=== PATIENT | female | born 1970 | race African-American/Black ===

== ENCOUNTER 2016-08-12 09:17 | Emergency (ER) | payer OTHER ==
[~2016-08-12] VITALS: Ht 167.6 cm; Wt 87.5 kg
[2016-08-12] MEDS ORDERED: IV NORMAL SALINE 1,000ML 1,000 ML IV SCH (09:32)
[2016-08-12] MEDS ORDERED: ONDANSETRON PF 4 MG/2 ML VIAL. IV ONE (09:45)
--- NOTE | 2016-08-12 09:45 | ED.ADGEN ---
Past History Past Medical History: Bipolar, Diabetes Past Surgical History: Tubal ligation Alcohol Use: Rarely Drug Use: None Adult General Chief Complaint Chief Complaint right flank pain HPI HPI 45-year-old female presenting to the emergency department today with right- sided flank pain. She describes her pain as a sharp shooting pain that radiates into the groin. It is not associated with hematuria however is associated with dysuria. It is moderate to severe, intermittent and without alleviating factors. It is associated with nausea without vomiting. She denies fevers chills. She does not believe she is as she has had a tubal ligation many years ago. Review of systems was negative for bloody stools diarrhea constipation. Negative for vomiting chest pain or shortness of breath. All other review of systems is negative unless otherwise noted in history of present illness. Review of Systems Review of Systems SEE ABOVE. Current Medications Current Medications Current Medications Medications (Trade) Dose Ordered Sig/Stephanie Start Time Stop Time Status Last Admin Dose Admin Fentanyl Citrate 25 mcg 25 mcg PRN Q15MIN PRN 08/12/16 09:45 08/13/16 09:44 08/12/16 10:36 25 MCG Insulin Human Regular (Novolin R) 10 unit 1X ONCE 08/12/16 10:25 08/12/16 10:26 DC 08/12/16 10:04 10 UNIT Ondansetron HCl (Zofran) 4 mg 1X ONCE 08/12/16 09:45 08/12/16 09:46 DC 08/12/16 09:45 4 MG Sodium Chloride (Iv Sodium Chloride 0.9% 1,000ml) 1,000 ml @ 1,000 mls/hr Q1H 08/12/16 09:32 08/12/16 10:31 DC 08/12/16 09:32 1,000 MLS/HR Allergies Allergies Allergies Coded Allergies Type Severity Reaction Last Updated Verified metformin Allergy Unknown 08/12/16 Yes Physical Exam Physical Exam Constitutional: Well developed, well nourished, patient appears to be in a mild- to-moderate amount of pain. She is fidgety in the exam room., non-toxic appearance. HENT: Normocephalic, atraumatic, bilateral external ears normal, oropharynx moist, no oral exudates, nose normal. [] Eyes: PERRLA, EOMI, conjunctiva normal, no discharge. [] Neck: Normal range of motion, no tenderness, supple, no stridor. [] Cardiovascular:Heart rate regular rhythm, no murmur [] Lungs & Thorax: Bilateral breath sounds clear to auscultation [] Abdomen: Soft nontender abdomen without rebound tenderness or guarding present. Negative McBurneys point. Negative Babcock sign. No ecchymosis present. Skin: Warm, dry, no erythema, no rash. [] Back: No tenderness, right cva tenderness present Extremities: No tenderness, no cyanosis, no clubbing, ROM intact, no edema. [] Neurologic: Alert and oriented X 3, normal motor function, normal sensory function, no focal deficits noted. [] Psychologic: Affect normal, judgement normal, mood normal. [] Current Patient Data Vital Signs Vital Signs Date Time Temp Pulse Resp B/P Pulse Ox O2 Delivery O2 Flow Rate FiO2 08/12/16 11:01 91 18 144/85 98 08/12/16 09:28 96.3 Room Air Lab Results Laboratory Tests Test 08/12/16 09:40 08/12/16 09:51 08/12/16 09:52 08/12/16 10:56 White Blood Count 9.8x10^3/uL (4.0-11.0) Red Blood Count 5.68x10^6/uL (3.50-5.40) H Hemoglobin 14.7g/dL (12.0-15.5) Hematocrit 44.3% (36.0-47.0) Mean Corpuscular Volume 78fL (79-100) L Mean Corpuscular Hemoglobin 26pg (25-35) Mean Corpuscular Hemoglobin Concent 33g/dL (31-37) Red Cell Distribution Width 13.3% (11.5-14.5) Platelet Count 225x10^3/uL (140-400) Neutrophils (%) (Auto) 70% (31-73) Lymphocytes (%) (Auto) 19% (24-48) L Monocytes (%) (Auto) 10% (0-9) H Eosinophils (%) (Auto) 1% (0-3) Basophils (%) (Auto) 0% (0-3) Neutrophils # (Auto) 6.9x10^3uL (1.8-7.7) Lymphocytes # (Auto) 1.8x10^3/uL (1.0-4.8) Monocytes # (Auto) 1.0x10^3/uL (0.0-1.1) Eosinophils # (Auto) 0.1x10^3/uL (0.0-0.7) Basophils # (Auto) 0.0x10^3/uL (0.0-0.2) Urine Collection Type Unknown Urine Color Yellow Urine Clarity Clear Urine pH 5.5 Urine Specific [place] 1.010 Urine Protein Trace (NEG-TRACE) Urine Glucose (UA) >=1000mg/dL (NEG) Urine Ketones (Stick) Negmg/dL (NEG) Urine Blood Small (NEG) Urine Nitrite Neg (NEG) Urine Bilirubin Neg (NEG) Urine Urobilinogen Dipstick 0.2mg/dL (0.2 mg/dL) Urine Leukocyte Esterase Neg (NEG) Sodium Level 136mmol/L (136-145) Potassium Level 4.1mmol/L (3.5-5.1) Chloride Level 98mmol/L (98-107) Carbon Dioxide Level 31mmol/L (21-32) Anion Gap 7 (6-14) Blood Urea Nitrogen 17mg/dL (7-20) Creatinine 1.0mg/dL (0.6-1.0) Estimated GFR (Cockcroft-Gault) 72.2 Glucose Level 449mg/dL (70-99) H Calcium Level 9.7mg/dL (8.5-10.1) Total Bilirubin 0.5mg/dL (0.2-1.0) Direct Bilirubin 0.1mg/dL (0.0-0.2) Aspartate Amino Transferase (AST) 12U/L (15-37) L Alanine Aminotransferase (ALT) 27U/L (14-59) Alkaline Phosphatase 101U/L (46-116) Total Protein 8.7g/dL (6.4-8.2) H Albumin 3.7g/dL (3.4-5.0) Lipase 248U/L (73-393) Glucose (Fingerstick) 407mg/dL (70-99) H 180mg/dL (70-99) H POC Urine HCG, Qualitative hcg negative (Negative) EKG EKG [] Radiology/Procedures Radiology/Procedures [] Course & Med Decision Making Course & Med Decision Making Pertinent Labs and Imaging studies reviewed. (See chart for details) [] 45-year-old female with a history of diabetes presenting to the emergency department with right-sided flank pain and dysuria. Vital signs afebrile. Saturating well on room air. Pertinent physical exam findings showed mild right CVA tenderness with a nontender appendix nontender gallbladder. The patient was given IV fluids nausea and pain medications while in the emergency department. On reexamination her patent improved. She was sitting comfortably in the examination room on reexamination. Repeat abdominal exam shows a nontender appendix and nontender gallbladder. CT the abdomen pelvis was performed. No evidence for acute pathology. The patient was then discharged home in stable condition to follow up with their primary care physician over the next 2-3 days. They were to return if there symptoms worsened or if they're concerned for any reason. [id number] discharge instructions and return precautions were given. Patient's questions were answered to their satisfaction. Patient is comfortable plan. Final Impression Final Impression Right-sided flank pain [] Problems: Dragon Disclaimer Dragon Disclaimer This electronic medical record was generated, in whole or in part, using a voice recognition dictation system. KAY KNAPP MD Aug 12, 2016 09:45
[2016-08-12] MEDS: FENTANYL PF 100 MCG/2 ML VIAL. IV PRN ×2 (09:46→10:36)
[2016-08-12] MEDS ORDERED: MORP15TA PO (09:56)
[2016-08-12] MEDS ORDERED: ONDA4TAB10 SL (09:56)
[2016-08-12 10:07] LABS: BASO % 0 % (0-3); EOS # 0.1 x10^3/uL (0.0-0.7); EOS % 1 % (0-3); HEMATOCRIT 44.3 % (36.0-47.0); HEMOGLOBIN 14.7 g/dL (12.0-15.5); LYMPH # 1.8 x10^3/uL (1.0-4.8); LYMPH % 19 % (24-48); MEAN CORPUSCULAR HEMOGLOBIN 26 pg (25-35); MEAN CORPUSCULAR HGB CONC 33 g/dL (31-37); MEAN CORPUSCULAR VOLUME 78 fL (79-100); MONO % 10 % (0-9); NEUT # 6.9 x10^3uL (1.8-7.7); NEUT % 70 % (31-73); PLATELET COUNT 225 x10^3/uL (140-400); RED BLOOD COUNT 5.68 x10^6/uL (3.50-5.40); RED CELL DISTRIBUTION WIDTH 13.3 % (11.5-14.5); WHITE BLOOD COUNT 9.8 x10^3/uL (4.0-11.0)
[2016-08-12 10:10] LABS: CALCIUM 9.7 mg/dL (8.5-10.1); GFR 72.2; POTASSIUM 4.1 mmol/L (3.5-5.1)
[2016-08-12 10:16] LABS: ALBUMIN 3.7 g/dL (3.4-5.0); DIRECT BILIRUBIN 0.1 mg/dL (0.0-0.2); TOTAL BILIRUBIN 0.5 mg/dL (0.2-1.0); TOTAL PROTEIN 8.7 g/dL (6.4-8.2)
[2016-08-12] MEDS ORDERED: INSULIN REGULAR 100 UNIT/ML 10ML VIAL. IV ONE (10:25)
[2016-08-12 10:30] LABS: BILIRUBIN,URINE NEG (NEG); CLARITY,URINE CLEAR; COLOR,URINE YELLOW; GLUCOSE,URINE >=1000 mg/dL (NEG); NITRITE,URINE NEG (NEG); UROBILINOGEN,URINE 0.2 mg/dL (0.2 mg/dL)
--- NOTE | 2016-08-12 10:45 | RAD ---
CT abdomen and pelvis without contrast History: Nausea, right flank pain. Symptoms for one week. Comparison: None. Technique: Helical CT of the abdomen and pelvis was performed without intravenous or oral contrast. Axial, sagittal, and coronal reconstructions were obtained. One or more of the following individualized dose reduction techniques were utilized for the study: Automated exposure control Adjustment of mA and/or kV according to patient's size Use of iterative reconstruction technique. Findings: Evaluation of the solid organs is limited by lack of intravenous contrast. Evaluation of enteric structures may be limited by lack of oral contrast. Visualized liver, spleen, pancreas, gallbladder, and bilateral adrenal glands are unremarkable. There is no evidence of bowel obstruction. No free air or significant free fluid is identified in the abdomen or pelvis. Appendix appears within normal limits. Urinary bladder is unremarkable. Small amount of gas seen in the vaginal vault. Uterus and adnexa are otherwise unremarkable appearance. Several phleboliths are seen scattered in the abdomen and pelvis. Impression: No acute abnormality identified in the abdomen or pelvis. No evidence of urinary stone.
[2016-08-12 11:01] VITALS: BP 144/85
== END 2016-08-12 11:02 | disposition home or self-care (01) ==
LOC: ER 09:17
DX: R10.9 Unspecified abdominal pain (principal); R30.0 Dysuria; R11.0 Nausea; E11.9 Type 2 diabetes mellitus without complications; Z98.51 Tubal ligation status; Z88.8 Allergy status to other drugs, medicaments and biological substances
CPT/HCPCS: 36415; 74176; 80048; 80076; 81003; 82947; 83690; 84703; 85027; 96361; 96374; 96375; 99285; J1815; J2405; J3010; 81025; J7030

== ENCOUNTER 2016-09-01 11:29 | Emergency (ER) | payer OTHER ==
[~2016-09-01 11:29] MED LIST: MORP15TA PO; ONDA4TAB10 SL
[2016-09-01 12:21] LABS: BASO % 1 % (0-3); EOS % 1 % (0-3); HEMATOCRIT 42.2 % (36.0-47.0); LYMPH # 1.4 x10^3/uL (1.0-4.8); LYMPH % 19 % (24-48); MEAN CORPUSCULAR HEMOGLOBIN 26 pg (25-35); MEAN CORPUSCULAR HGB CONC 33 g/dL (31-37); MEAN CORPUSCULAR VOLUME 77 fL (79-100); MONO # 0.5 x10^3/uL (0.0-1.1); MONO % 7 % (0-9); NEUT # 5.5 x10^3uL (1.8-7.7); NEUT % 73 % (31-73); PLATELET COUNT 188 x10^3/uL (140-400); RED BLOOD COUNT 5.49 x10^6/uL (3.50-5.40); RED CELL DISTRIBUTION WIDTH 13.2 % (11.5-14.5); WHITE BLOOD COUNT 7.6 x10^3/uL (4.0-11.0)
--- NOTE | 2016-09-01 12:30 | EKG ---
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
[2016-09-01 12:32] LABS: ALBUMIN 3.4 g/dL (3.4-5.0); ALBUMIN/GLOBULIN RATIO 0.7 (1.0-1.7); CALCIUM 9.4 mg/dL (8.5-10.1); GFR 72.2; POTASSIUM 3.9 mmol/L (3.5-5.1); TOTAL BILIRUBIN 0.5 mg/dL (0.2-1.0); TOTAL PROTEIN 8.1 g/dL (6.4-8.2)
--- NOTE | 2016-09-01 12:39 | RAD ---
Examination: Acute abdomen series History: History of epigastric pain, nausea, vomiting Comparison: None available Findings: The cardiomediastinal silhouette grossly appears unremarkable. There is no acute infiltrate or visualized pneumothorax identified. No evidence of free air noted under the hemidiaphragms. Paucity of gas in the abdomen limits evaluation of small bowel. Feces and gas noted throughout the colon likely secondary to constipation. Impression: 1. No acute cardiopulmonary findings. 2. Feces and gas noted throughout the colon likely secondary to constipation.
[2016-09-01 13:01] LABS: BARBITURATES NEG (NEG); BENZODIAZEPINES NEG (NEG); BILIRUBIN,URINE NEG (NEG); CANNABINOIDS POS (NEG); CLARITY,URINE HAZY; COCAINE NEG (NEG); COLOR,URINE YELLOW; GLUCOSE,URINE >=1000 mg/dL (NEG); METHADONE NEG (NEG); OPIATES POS (NEG); PHENCYCLIDINE NEG (NEG)
[2016-09-01 13:02] LABS: BACTERIA,URINE MANY /HPF (0-FEW); NITRITE,URINE POS (NEG); RBC,URINE 0 /HPF (0-2); SQUAMOUS EPITHELIAL CELL,UR MOD /LPF; UROBILINOGEN,URINE 0.2 mg/dL (0.2 mg/dL)
--- NOTE | 2016-09-01 13:02 | PHYS DOC ---
General Chief Complaint: abdominal pain Stated Complaint: flank pain Time Seen by MD: 11:38 Source: patient, old records Exam Limitations: no limitations Problems: History of Present Illness Initial Comments Pt is 45/F h/o DM and bipolar here for flank and abdominal pain. Pt is out of insulin, states she has recurrance of b/l flank and abdominal discomfort. No n/v/d, last PO today last BM yesterday "nl." No fever/chills/ diaphoresis/cp/sob/hematuria/dysuria/odor. Here past week similar sx, full lab/ CT workup negative. Appetite intact, no trauma. Normally takes novolin SSI. Timing/Duration: 24 hours Severity: moderate Modifying Factors: improves with other (no exacerbating/alleviating factors) Associated Symptoms: other Allergies: Coded Allergies: metformin (Verified Allergy, Unknown, 08/12/16) Past Medical History Medical History: other (DM, bipolar) Surgical History: noncontributory (TL) Social History Smoker: cigarettes Alcohol: occasionally Drugs: none Review of Systems Constitutional: denies chills, denies diaphoresis, denies fever, denies malaise Respiratory: denies cough, denies shortness of breath, denies wheezing Cardiovascular: denies chest pain, denies palpitations, denies syncope Gastrointestinal: abdominal pain, denies constipation, denies diarrhea, denies nausea, denies vomiting Genitourinary: denies dysuria, denies frequency, denies hematuria Musculoskeletal: denies joint swelling, denies neck pain Psychiatric/Neurological: denies headache, denies numbness, denies paresthesia , denies weakness Hematologic/Lymphatic: denies blood clots, denies easy bleeding, denies easy bruising Physical Exam General Appearance: mild distress Eyes: bilateral eye normal inspection, bilateral eye PERRL, bilateral eye EOMI Ear, Nose, Throat: hearing grossly normal, normal ENT inspection, normal pharynx Neck: non-tender, supple Respiratory: normal breath sounds, no respiratory distress Cardiovascular: normal peripheral pulses, regular rate, rhythm Gastrointestinal: soft (ND, BS nl, generalized TTP neg mcburney/mobley, no masses), no organomegaly Rectal: deferred Back: no CVA tenderness, no vertebral tenderness Extremities: non-tender, normal inspection Neurologic/Psychiatric: summer law associate II-XII nml as tested, no motor/sensory deficits, alert, oriented x 3 Skin: normal color, warm/dry Orders, Labs, Meds PATIENT: WILFRED MASTERS ACCOUNT: [id number] : 1970 LOCATION: ER AGE: 45 SEX: F EXAM STATUS: REG ER ORD. PHYSICIAN: VIPUL SHEPHERD DO REASON: epigastric pain PROCEDURE: ACUTE ABDOMEN SERIES Examination: Acute abdomen series History: History of epigastric pain, nausea, vomiting Comparison: None available Findings: The cardiomediastinal silhouette grossly appears unremarkable. There is no acute infiltrate or visualized pneumothorax identified. No evidence of free air noted under the hemidiaphragms. Paucity of gas in the abdomen limits evaluation of small bowel. Feces and gas noted throughout the colon likely secondary to constipation. Impression: 1. No acute cardiopulmonary findings. 2. Feces and gas noted throughout the colon likely secondary to constipation. DICTATED AND SIGNED BY: TOMI YUN MD DATE: 09/01/16 7428 CC: PCP,NO; VIPUL SHEPHERD DO ~ Glucose 463 (10u reg insulin sc), UA grossly + infection, UDS + cannabinoids/ opiates glucose recheck 300's, pt requests insulin RF. Will RF enough x 1 week pt to f/ u PCP for refills. Encouraged to stop smoking. Departure Time of Disposition: 13:28 Disposition: 01 HOME, SELF-CARE Diagnosis: DM Uncontrolled, constipation, UTI Condition: STABLE Patient Instructions: Constipation, Adult, [id number], Diabetes and Standards of Medical Care, Urinary Tract Infection, [id number] Additional Instructions: Increase noncaffeinated fluid intake. Increase dietary fiber to 20g/day. Increase daily exercise, consider home fleet's enema as needed. Rx: Cipro, pyridium, glycerin supp, dulcolax, novolog insulin (for sliding scale) Take your home glucose before each meal and bedtime. Take BS log to follow up visit with your doctor. Follow up with your doctor Wednesday for recheck of symptoms and your glucose log. Return to ED with new or changing symptoms. VIPUL SHEPHERD DO September 01, 2016 13:02
[2016-09-01 13:03] LABS: AMPHETAMINE/METHAMPHETAMINE NEG (NEG)
[2016-09-01] MEDS ORDERED: GLYC1SUP RC (13:34)
[2016-09-01] MEDS ORDERED: CIPR500T94 PO (13:34)
[2016-09-01] MEDS ORDERED: PHEN100T82 PO (13:34)
[2016-09-01] MEDS ORDERED: BISA5TAB4 PO (13:34)
[2016-09-01] MEDS: INSULIN REGULAR 100 UNIT/ML 10ML VIAL. SQ ONE (13:50)
[2016-09-01 14:34] VITALS: BP 163/99
== END 2016-09-01 14:50 | disposition home or self-care (01) ==
LOC: ER 11:29
DX: N39.0 Urinary tract infection, site not specified (principal); K59.00 Constipation, unspecified; E11.8 Type 2 diabetes mellitus with unspecified complications; F31.9 Bipolar disorder, unspecified; F17.210 Nicotine dependence, cigarettes, uncomplicated; Z88.8 Allergy status to other drugs, medicaments and biological substances
CPT/HCPCS: 36415; 74022; 80053; 80305; 81001; 82550; 82947; 83690; 84484; 85027; 87086; 93005; 96372; 99285; J1815; G0481

== ENCOUNTER 2018-06-28 12:49 | Emergency (ER) | payer OTHER ==
[~2018-06-28] VITALS: Ht 167.6 cm; Wt 84.8 kg
[~2018-06-28 12:49] MED LIST changes: +BISA5TAB4 PO; +CIPR500T94 PO; +GLYC1SUP RC; +PHEN100T82 PO
[2018-06-28 13:04] VITALS: BP 147/99
[2018-06-28] MEDS ORDERED: CYCL-331 PO (13:34)
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
== END 2018-06-28 13:44 | disposition home or self-care (01) ==
LOC: ER 12:49
DX: M54.6 Pain in thoracic spine (principal); G89.11 Acute pain due to trauma; M54.2 Cervicalgia; F31.9 Bipolar disorder, unspecified; M79.7 Fibromyalgia; F20.9 Schizophrenia, unspecified; Z88.8 Allergy status to other drugs, medicaments and biological substances; Z90.710 Acquired absence of both cervix and uterus; Z98.51 Tubal ligation status; V49.59XA Passenger injured in collision with other motor vehicles in traffic accident, initial encounter; Y93.89 Activity, other specified; Y92.488 Other paved roadways as the place of occurrence of the external cause; Y99.8 Other external cause status
CPT/HCPCS: 99283

== ENCOUNTER 2018-08-18 08:36 | Emergency (ER) | payer SELFPAY ==
[~2018-08-18] VITALS: Ht 165.1 cm; Wt 81.0 kg
[~2018-08-18 08:36] MED LIST changes: +CYCL-331 PO
[2018-08-18 08:47] VITALS: BP 155/106
[2018-08-18] MEDS ORDERED: ORPH-16 PO (08:57)
[2018-08-18] MEDS ORDERED: PREG50CA PO (08:57)
[2018-08-18] MEDS ORDERED: METH4TAB2 PO (08:57)
--- NOTE | 2018-08-18 08:57 | PHYS DOC ---
Past History Past Medical History: Diabetes, Other Past Surgical History: Tubal ligation Alcohol Use: None Drug Use: None Adult General Chief Complaint Chief Complaint: PAIN CONTROL HPI HPI Patient is a 47-year-old female who presents with complaint of diffuse body and joint aches that she states are chronic in nature. Patient states that she has a history of fibromyalgia and states that she was taking Lyrica but states that she has been out of Lyrica for almost a month. She states her pain is progressively worsening and states that currently the worst of her pain is in her back but also diffusely in her joints. She also states that she has swelling in her joints. She denies any chest pain or shortness of breath. She also denies any fever. Patient states that she does not have a primary care provider and has been looking for one. Review of Systems Review of Systems Constitutional: Denies fever or chills [] Respiratory: Denies cough or shortness of breath [] Cardiovascular: No additional information not addressed in HPI [] GI: Denies abdominal pain, nausea, vomiting or diarrhea [] Musculoskeletal: Complains of back and diffuse joint pain [] Integument: Denies rash or skin lesions [] All other systems were reviewed and found to be within normal limits, except as documented in this note. Allergies Allergies Allergies Coded Allergies Type Severity Reaction Last Updated Verified metformin Allergy Unknown 08/12/16 Yes Physical Exam Physical Exam Constitutional: Well developed, well nourished, appears uncomfortable, non-toxic appearance. [] HENT: Normocephalic, atraumatic, bilateral external ears normal, oropharynx moist, no oral exudates, nose normal. [] Cardiovascular:Heart rate regular rhythm, no murmur [] Lungs & Thorax: Bilateral breath sounds clear to auscultation [] Skin: Warm, dry, no erythema, no rash. [] Back: Patient has diffuse tenderness throughout the back. There is some palpable spasm in the bilateral lower thoracic along with lumbar paraspinal musculature. [] Extremities: No cyanosis, no clubbing, ROM intact, no edema. [] Neurologic: Alert and oriented X 3, no focal deficits noted. [] Current Patient Data Vital Signs Vital Signs Date Time Temp Pulse Resp B/P (MAP) Pulse Ox O2 Delivery O2 Flow Rate FiO2 08/18/18 08:47 97.7 95 18 100 Room Air EKG EKG [] Radiology/Procedures Radiology/Procedures [] Course & Med Decision Making Course & Med Decision Making Pertinent Labs and Imaging studies reviewed. (See chart for details) [] Mitch Disclaimer Mitch Disclaimer This electronic medical record was generated, in whole or in part, using a voice recognition dictation system. Departure Departure: Impression: Primary Impression: Chronic pain Disposition: HOME, SELF-CARE Condition: STABLE Referrals: PCP,NO (PCP) Patient Instructions: Chronic Pain Scripts Methylprednisolone (MEDROL) 4 Mg Tab.ds.pk 1 PKG PO UD for inflammation, #1 PKG Prov: CAROLINA BAY Jr. DO 08/18/18 Orphenadrine Citrate (ORPHENADRINE CITRATE) 100 Mg Tablet.er 1 TAB PO BID PRN for MUSCLE SPASMS, #14 TAB Prov: CAROLINA BAY Jr. DO 08/18/18 Pregabalin (LYRICA) 50 Mg Capsule 1 CAP PO TID for chronic pain, #45 CAP Prov: CAROLINA BAY Jr. DO 08/18/18 Problem Qualifiers Primary Impression: Chronic pain Chronic pain type: other chronic pain Qualified Codes: G89.29 - Other chronic pain CAROLINA BAY Jr. DO August 18, 2018 08:57
[2018-08-18] MEDS ORDERED: DEXAMETHASONE SOD PHOS 10 MG/ML VIAL IM ONE (09:15)
[2018-08-18] MEDS ORDERED: HYDROcodone/APAP 7.5/325MG 1 TAB TABLET PO ONE (09:15)
[2018-08-18] MEDS ORDERED: ORPHENADRINE CITRATE 60 MG/2 ML VIAL. IM ONE (09:15)
== END 2018-08-18 09:18 | disposition home or self-care (01) ==
LOC: ER 08:36
DX: G89.29 Other chronic pain (principal); M54.5 Low back pain; M54.6 Pain in thoracic spine; E11.9 Type 2 diabetes mellitus without complications; M79.7 Fibromyalgia; Z98.51 Tubal ligation status; Z88.8 Allergy status to other drugs, medicaments and biological substances
CPT/HCPCS: 96372; 99284; J1100; J2360

== ENCOUNTER 2018-09-04 17:39 | Emergency (ER) | payer SELFPAY ==
[~2018-09-04] VITALS: Ht 165.1 cm; Wt 83.3 kg
[2018-09-04 17:39] VITALS: BP 151/78
[~2018-09-04 17:39] MED LIST changes: +METH4TAB2 PO; +ORPH-16 PO; +PREG50CA PO
[2018-09-04] MEDS ORDERED: ACETAMINOPHEN/CODEINE 300/30MG TABLET PO ONE (18:15)
--- NOTE | 2018-09-04 18:21 | PHYS DOC ---
Past History Past Medical History: Diabetes, Fibromyalgia, Other Past Surgical History: Tubal ligation Alcohol Use: Rarely Drug Use: None Adult General Chief Complaint Chief Complaint: MECHANICAL FALL HPI HPI Patient is a 47-year-old female who presents with complaint of pain in her tailbone after she slipped on a broomstick and fell directly onto her buttocks. She rates pain at greater than a 10 out of 10. She states the pain is worsened when she sits down and when she goes over bumps. She denies any loss of bowel or bladder control. She also denies any saddle anesthesia. Patient denies any pain in her back or neck. She describes pain as a deep ache. She states that injury occurred approximately an hour ago.[] Review of Systems Review of Systems Constitutional: Denies fever or chills [] Respiratory: Denies cough or shortness of breath [] Cardiovascular: No additional information not addressed in HPI [] GI: Denies abdominal pain, nausea, vomiting or diarrhea [] : Denies dysuria or hematuria [] Musculoskeletal: Positive tailbone/buttock pain [] Current Medications Current Medications Current Medications Medications (Trade) Dose Ordered Sig/Stephanie Start Time Stop Time Status Last Admin Dose Admin Acetaminophen/ Codeine Phosphate (Tylenol #3) 1 tab 1X ONCE 09/04/18 18:15 09/04/18 18:16 DC 09/04/18 18:16 1 TAB Allergies Allergies Allergies Coded Allergies Type Severity Reaction Last Updated Verified metformin Allergy Unknown 08/12/16 Yes Physical Exam Physical Exam Constitutional: Well developed, well nourished, no acute distress, non-toxic appearance. [] Cardiovascular:Heart rate regular rhythm, no murmur [] Lungs & Thorax: Bilateral breath sounds clear to auscultation [] Back: No spinous point tenderness. There is tenderness to palpation overlying the sacrum and coccyx region. [] Extremities: No tenderness, no cyanosis, no clubbing, ROM intact. [] Current Patient Data Vital Signs Vital Signs Date Time Temp Pulse Resp B/P (MAP) Pulse Ox O2 Delivery O2 Flow Rate FiO2 09/04/18 17:39 98.2 109 20 100 Room Air EKG EKG [] Radiology/Procedures Radiology/Procedures [] Course & Med Decision Making Course & Med Decision Making Pertinent Labs and Imaging studies reviewed. (See chart for details) [] Dragon Disclaimer Dragon Disclaimer This electronic medical record was generated, in whole or in part, using a voice recognition dictation system. Departure Departure: Impression: Primary Impression: Sacral contusion Disposition: 01 HOME, SELF-CARE Condition: STABLE Referrals: PCP,NO (PCP) Patient Instructions: Tailbone Injury Scripts Hydrocodone Bit/Acetaminophen (NORCO 5-325 TABLET) 1 Each Tablet 1 TAB PO PRN Q6HRS PRN for PAIN, #12 TAB 0 Refills Prov: CAROLINA BAY Jr., DO 09/04/18 Problem Qualifiers Primary Impression: Sacral contusion Encounter type: initial encounter Qualified Codes: S30.0XXA - Contusion of lower back and pelvis, initial encounter CAROLINA BAY Jr., DO September 04, 2018 18:21
[2018-09-04] MEDS ORDERED: HYDR-3165 PO (18:57)
--- NOTE | 2018-09-05 01:52 | RAD ---
Sacrum and coccyx 3 views. HISTORY: Fall, severe pain 3 views were taken of the sacrum and coccyx. Coccyx is in normal alignment. Sacrum appears intact without definite fracture. Lower lumbar spine is in normal alignment. IMPRESSION: 1. No fracture noted in the sacrum or coccyx. Electronically signed by: Rancho Lindsey MD (09/05/2018 1:49 AM) [id number]
== END 2018-09-04 19:07 | disposition home or self-care (01) ==
LOC: ER 17:39
DX: S30.0XXA Contusion of lower back and pelvis, initial encounter (principal); E11.9 Type 2 diabetes mellitus without complications; M79.7 Fibromyalgia; Z88.8 Allergy status to other drugs, medicaments and biological substances; W01.0XXA Fall on same level from slipping, tripping and stumbling without subsequent striking against object, initial encounter; Y93.89 Activity, other specified; Y92.89 Other specified places as the place of occurrence of the external cause; Y99.8 Other external cause status
CPT/HCPCS: 72220; 99284

== ENCOUNTER 2018-09-19 12:07 | Emergency (ER) | payer SELFPAY ==
[~2018-09-19] VITALS: Ht 167.6 cm; Wt 83.5 kg
[~2018-09-19 12:07] MED LIST changes: +HYDR-3165 PO
[2018-09-19 12:20] VITALS: BP 134/98
--- NOTE | 2018-09-19 12:43 | PHYS DOC ---
Past History Past Medical History: Diabetes, Fibromyalgia, GERD Past Surgical History: Tubal ligation Smoking: Non-smoker Alcohol Use: Occasionally Drug Use: None Adult General Chief Complaint Chief Complaint: CHEST PAIN HPI HPI Patient is a 47-year-old female presents with right-sided chest discomfort that started 2 days ago. It has waxed and waned. No home medicines have been taken. Patient denies any PE risk factors such as trauma or recent surgeries, stasis or travel, or known hypercoagulable state. She notes that there has been a cough that has increased. No fever. No trauma. No radiation of the discomfort. No worsening with exertion. Patient's mother had a heart attack at age 35 just after delivering the patient.[] Review of Systems Review of Systems Constitutional: Denies fever or chills [] Eyes: Denies change in visual acuity, redness, or eye pain [] HENT: Denies nasal congestion or sore throat [] Respiratory: Denies cough or shortness of breath [] Cardiovascular: No additional information not addressed in HPI [] GI: Denies abdominal pain, nausea, vomiting, bloody stools or diarrhea [] : Denies dysuria or hematuria [] Musculoskeletal: Denies back pain or joint pain [] Integument: Denies rash or skin lesions [] Neurologic: Denies headache, focal weakness or sensory changes [] Endocrine: Denies polyuria or polydipsia [] All other systems were reviewed and found to be within normal limits, except as documented in this note. Allergies Allergies Allergies Coded Allergies Type Severity Reaction Last Updated Verified metformin Allergy Unknown 08/12/16 Yes Physical Exam Physical Exam Constitutional: Well developed, well nourished, no acute distress, non-toxic appearance. [] HENT: Normocephalic, atraumatic, bilateral external ears normal, oropharynx moist, no oral exudates, nose normal. [] Eyes: PERRLA, EOMI, conjunctiva normal, no discharge. [] Neck: Normal range of motion, no tenderness, supple, no stridor. [] Cardiovascular:Heart rate regular rhythm, no murmur [] Lungs & Thorax: Bilateral breath sounds clear to auscultation, there is right- sided chest discomfort to palpation, mid clavicular line and medially at approximately the fourth to fifth costal cartilage. This does reproduce the pain. There is no crepitus. [] Abdomen: Bowel sounds normal, soft, no tenderness, no masses, no pulsatile masses. [] Skin: Warm, dry, no erythema, no rash. [] Back: No tenderness, no CVA tenderness. [] Extremities: No tenderness, no cyanosis, no clubbing, ROM intact, no edema. [] Neurologic: Alert and oriented X 3, normal motor function, normal sensory function, no focal deficits noted. [] Psychologic: Affect normal, judgement normal, mood normal. [] Current Patient Data Vital Signs Vital Signs Date Time Temp Pulse Resp B/P (MAP) Pulse Ox O2 Delivery O2 Flow Rate FiO2 09/19/18 12:20 97.7 86 21 96 Room Air EKG EKG EKG shows a sinus rhythm at 93 bpm, no ST elevation. Normal axis. QTC of 438 ms. No old EKG available for comparison. Interpreted by me at 1227.[] Radiology/Procedures Radiology/Procedures Chest x-ray shows no infiltrate, no effusion, no pneumothorax[] Course & Med Decision Making Course & Med Decision Making Pertinent Labs and Imaging studies reviewed. (See chart for details) ED course: Patient arrived, was placed in bed, and tolerated exam well. She received IV NSAIDs which improved her pain. After the return of lab and imaging findings, these were discussed with the patient and her partner who voiced understanding. All questions were answered. She was discharged in improved condition. Medical decision making: There does not appear to be pneumonia, pneumothorax, pulmonary embolism, acute coronary syndrome, esophageal rupture, nor other significant life-threatening condition.[] Dragon Disclaimer Dragon Disclaimer This electronic medical record was generated, in whole or in part, using a voice recognition dictation system. Departure Departure: Impression: Primary Impression: Chest pain Disposition: HOME, SELF-CARE Condition: IMPROVED Referrals: PCP,NO (PCP) Patient Instructions: Chest Pain (Nonspecific) Additional Instructions: Follow-up with your regular doctor in 2 days. Your medication as prescribed. Do not use any drugs or medicines that are not prescribed for you, they may kill you. Return to the ER if worsening chest discomfort, difficulty breathing, or any other concerns. Scripts Meloxicam (MELOXICAM) 7.5 Mg Tablet 7.5 MG PO DAILY for PAIN, #20 TAB Prov: MEGAN COLEMAN DO 09/19/18 Problem Qualifiers Primary Impression: Chest pain Chest pain type: unspecified Qualified Codes: R07.9 - Chest pain, unspecified MEGAN COLEMAN DO Sep 19, 2018 12:43
[2018-09-19 12:49] LABS: BASO % 1 % (0-3); EOS % 0 % (0-3); HEMOGLOBIN 13.7 g/dL (12.0-15.5); LYMPH # 1.5 x10^3/uL (1.0-4.8); LYMPH % 20 % (24-48); MEAN CORPUSCULAR HEMOGLOBIN 25 pg (25-35); MEAN CORPUSCULAR HGB CONC 33 g/dL (31-37); MEAN CORPUSCULAR VOLUME 77 fL (79-100); MONO # 0.6 x10^3/uL (0.0-1.1); MONO % 8 % (0-9); NEUT # 5.4 x10^3uL (1.8-7.7); NEUT % 71 % (31-73); PLATELET COUNT 213 x10^3/uL (140-400); RED BLOOD COUNT 5.42 x10^6/uL (3.50-5.40); RED CELL DISTRIBUTION WIDTH 13.4 % (11.5-14.5); WHITE BLOOD COUNT 7.6 x10^3/uL (4.0-11.0)
[2018-09-19] MEDS ORDERED: KETOROLAC 15 MG/ML VIAL. IV ONE (13:00)
[2018-09-19 13:10] LABS: ALBUMIN 3.2 g/dL (3.4-5.0); ALBUMIN/GLOBULIN RATIO 0.8 (1.0-1.7); CALCIUM 9.4 mg/dL (8.5-10.1); CREATININE 1.2 mg/dL (0.6-1.0); MAGNESIUM 1.9 mg/dL (1.8-2.4); POTASSIUM 4.1 mmol/L (3.5-5.1); TOTAL BILIRUBIN 0.3 mg/dL (0.2-1.0); TOTAL PROTEIN 7.2 g/dL (6.4-8.2)
[2018-09-19 13:20] LABS: BARBITURATES NEG (NEG); BENZODIAZEPINES NEG (NEG); CANNABINOIDS POS (NEG); COCAINE NEG (NEG); METHADONE NEG (NEG); OPIATES NEG (NEG); PHENCYCLIDINE NEG (NEG)
[2018-09-19 13:39] LABS: BACTERIA,URINE MANY /HPF (0-FEW); BILIRUBIN,URINE NEG (NEG); CLARITY,URINE CLOUDY; COLOR,URINE YELLOW; GLUCOSE,URINE >=1000 mg/dL (NEG); HYALINE CASTS, URINE FEW /HPF; NITRITE,URINE NEG (NEG); SQUAMOUS EPITHELIAL CELL,UR OCC /LPF; UROBILINOGEN,URINE 0.2 mg/dL (0.2 mg/dL)
[2018-09-19 13:43] LABS: AMPHETAMINE/METHAMPHETAMINE NEG (NEG)
[2018-09-19] MEDS ORDERED: MELO7.5T29 PO (13:54)
--- NOTE | 2018-09-19 14:49 | RAD ---
EXAM: CHEST 1 VIEW. HISTORY: Chest pain. COMPARISON: None. FINDINGS: A frontal view of the chest is obtained. There are no confluent infiltrates. There is no pneumothorax or pleural effusion. The heart is not enlarged. IMPRESSION: 1. No confluent infiltrates. Electronically signed by: Lori Burnham MD (09/19/2018 2:46 PM) [facility]
--- NOTE | 2018-09-19 16:09 | EKG ---
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
== END 2018-09-19 14:00 | disposition home or self-care (01) ==
LOC: ER 12:07
DX: R07.89 Other chest pain (principal); E11.9 Type 2 diabetes mellitus without complications; M79.7 Fibromyalgia; K21.9 Gastro-esophageal reflux disease without esophagitis; Z88.8 Allergy status to other drugs, medicaments and biological substances
CPT/HCPCS: 36415; 71045; 80053; 80307; 81001; 83690; 83735; 83880; 84484; 84702; 85025; 85379; 85610; 87086; 93005; 96374; 99285; J1885; 87186

== ENCOUNTER 2018-10-17 11:41 | Emergency (ER) | payer SELFPAY ==
[~2018-10-17] VITALS: Ht 167.6 cm; Wt 80.0 kg
[~2018-10-17 11:41] MED LIST changes: +MELO7.5T29 PO
[2018-10-17 11:53] VITALS: BP 130/83
[2018-10-17] MEDS ORDERED: CLIN300C8 PO (12:08)
--- NOTE | 2018-10-17 12:59 | PHYS DOC ---
Past History Past Medical History: Diabetes, Fibromyalgia, GERD Past Surgical History: No Surgical History Smoking: Non-smoker Alcohol Use: None Drug Use: None Adult General Chief Complaint Chief Complaint: INSECT BITE HPI HPI Patient is a 47 yo f thinks she got a bug bite right leg the other day about a weke ago slowly increasing redness and pain dull modeate swelling incraesing. redness extending to midshin area. no fever that she knows of hx of diabetes on novolog Review of Systems Review of Systems Constitutional: Denies fever or chills [] Respiratory: Denies cough or shortness of breath [] Cardiovascular: No additional information not addressed in HPI [] Neurologic: Denies headache, focal weakness Endocrine: Denies polyuria or polydipsia [] All other systems were reviewed and found to be within normal limits, except as documented in this note. Allergies Allergies Allergies Coded Allergies Type Severity Reaction Last Updated Verified metformin Allergy Unknown 08/12/16 Yes Physical Exam Physical Exam Constitutional: Well developed, well nourished, no acute distress, non-toxic appearance. [] HENT: Normocephalic, atraumatic, bilateral external ears normal, oropharynx moist, no oral exudates, nose normal. [] Eyes: PERRLA, EOMI, conjunctiva normal, no discharge. [] Neck: Normal range of motion, no tenderness, supple, no stridor. [] Cardiovascular:Heart rate regular rhythm, no murmur [] Lungs & Thorax: Bilateral breath sounds clear to auscultation [] Abdomen: Bowel sounds normal, soft, no tenderness, no masses, no pulsatile masses. [] Skin: erythema noted right anterolateral mccloud approx 3 by 3 cm area of induration , no fluctuance. apparent bug bite noted. there is tenderness noted. distal sensation and pulse intact. mild edema in the extremity with faint color change form the mid mccloud down. Back: No tenderness, no CVA tenderness. [] Extremities: No tenderness, no cyanosis, no clubbing, ROM intact, no edema. [] Neurologic: Alert and oriented X 3, normal motor function, normal sensory function, no focal deficits noted. [] Psychologic: Affect normal, judgement normal, mood normal. [] Current Patient Data Vital Signs Vital Signs Date Time Temp Pulse Resp B/P (MAP) Pulse Ox O2 Delivery O2 Flow Rate FiO2 10/17/18 11:53 98.9 100 19 97 Room Air EKG EKG [] Radiology/Procedures Radiology/Procedures [] Course & Med Decision Making Course & Med Decision Making Pertinent Labs and Imaging studies reviewed. (See chart for details) 47 yo f p/w leg infeciton, could have been from a bug bite but there appears to be a mild diffuse cellulits. at this time, no obvious fluctuance i talked to patient, try antibiotics first, then come back in 3-4 days if it is any worse to consider i and d at that time she is agreeable. return prec discussed Dragon Disclaimer Dragon Disclaimer This electronic medical record was generated, in whole or in part, using a voice recognition dictation system. Departure Departure: Impression: Primary Impression: Cellulitis Disposition: 01 HOME, SELF-CARE Condition: STABLE Referrals: PCP,NO (PCP) Patient Instructions: Cellulitis, [id number] Scripts Clindamycin Hcl (CLINDAMYCIN HCL) 300 Mg Capsule 1 CAP PO TID for cellulitis., #30 CAP Prov: BEVERLEY MORA MD 10/17/18 BEVERLEY MORA MD Oct 17, 2018 12:59
[2018-10-18] MEDS ORDERED: MELO7.5T29 PO (02:50)
== END 2018-10-17 12:12 | disposition home or self-care (01) ==
LOC: ER 11:41
DX: S80.861A Insect bite (nonvenomous), right lower leg, initial encounter (principal); L03.115 Cellulitis of right lower limb; E11.9 Type 2 diabetes mellitus without complications; M79.7 Fibromyalgia; K21.9 Gastro-esophageal reflux disease without esophagitis; Z88.8 Allergy status to other drugs, medicaments and biological substances; W57.XXXA Bitten or stung by nonvenomous insect and other nonvenomous arthropods, initial encounter; Y93.89 Activity, other specified; Y92.89 Other specified places as the place of occurrence of the external cause; Y99.8 Other external cause status
CPT/HCPCS: 99283

== ENCOUNTER 2018-10-18 02:17 | Emergency (ER) | payer SELFPAY ==
[~2018-10-18] VITALS: Ht 167.6 cm; Wt 79.8 kg
[~2018-10-18 02:17] MED LIST changes: +CLIN300C8 PO
[2018-10-18 02:25] VITALS: BP 155/93
[2018-10-18] MEDS ORDERED: MELO7.5T29 PO (02:50)
--- NOTE | 2018-10-18 02:50 | PHYS DOC ---
Past History Past Medical History: Diabetes, Fibromyalgia, GERD Past Surgical History: No Surgical History Smoking: Non-smoker Alcohol Use: None Drug Use: None Adult General Chief Complaint Chief Complaint: LOWER EXTREMITY SWELLING HPI HPI Patient is a 47-year-old female presents with right leg pain and swelling. She was seen earlier/approximately 14 hours ago for this. She was prescribed antibiotics for cellulitis which she has not yet obtained from the pharmacy. This leg pain and swelling and redness started approximately 4 days ago after an insect bite. It has been getting worse over time. She denies any systemic fever. Notes that the area feels hot. Denies any purulent drainage. Nothing makes the symptoms better or worse.[] Review of Systems Review of Systems Constitutional: Denies fever or chills [] Eyes: Denies change in visual acuity, redness, or eye pain [] HENT: Denies nasal congestion or sore throat [] Respiratory: Denies cough or shortness of breath [] Cardiovascular: No chest pain or palpitations[] GI: Denies abdominal pain, nausea, vomiting, bloody stools or diarrhea [] : Denies dysuria or hematuria [] Musculoskeletal: Denies back pain or joint pain [] Integument: See history of present illness[] Neurologic: Denies headache, focal weakness or sensory changes [] Endocrine: Denies polyuria or polydipsia [] All other systems were reviewed and found to be within normal limits, except as documented in this note. Allergies Allergies Allergies Coded Allergies Type Severity Reaction Last Updated Verified metformin Allergy Unknown 08/12/16 Yes Physical Exam Physical Exam Constitutional: Well developed, well nourished, no acute distress, non-toxic appearance. [] HENT: Normocephalic, atraumatic, bilateral external ears normal, oropharynx moist, no oral exudates, nose normal. [] Eyes: PERRLA, EOMI, conjunctiva normal, no discharge. [] Neck: Normal range of motion, no tenderness, supple, no stridor. [] Cardiovascular:Heart rate regular rhythm, no murmur [] Lungs & Thorax: Bilateral breath sounds clear to auscultation [] Abdomen: Not examined[] Skin: Warm, dry, erythema present right calf region. There is a 1 cm diameter [place] on the lateral portion of the calf, at the anterior inferior aspect of her tattoo. This blister contains clear fluid which was aspirated and sent for laboratory analysis. There is no skin sloughing. No petechiae. [] Back: No tenderness, no CVA tenderness. [] Extremities: No tenderness, no cyanosis, no clubbing, ROM intact, no edema. [] Neurologic: Alert and oriented X 3, normal motor function, normal sensory function, no focal deficits noted. [] Psychologic: Affect normal, judgement normal, mood normal. [] Current Patient Data Vital Signs Vital Signs Date Time Temp Pulse Resp B/P (MAP) Pulse Ox O2 Delivery O2 Flow Rate FiO2 10/18/18 02:25 98.4 101 18 97 Room Air EKG EKG [] Radiology/Procedures Radiology/Procedures [] Course & Med Decision Making Course & Med Decision Making Pertinent Labs and Imaging studies reviewed. (See chart for details) Medical decision making: Patient appears to have cellulitis that has not yet started treatment. There was no purulent material in this blister. 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 There is no evidence of systemic toxicity or sepsis. No evidence of a DVT. No evidence of staph scalded skin syndrome, toxic epidermal necrolysis, nor Thomas-Usman syndrome. Discussed plan with the patient who voiced understanding. All questions were answered. She was discharged in improved condition.[] Dragon Disclaimer Dragon Disclaimer This electronic medical record was generated, in whole or in part, using a voice recognition dictation system. Departure Departure: Impression: Primary Impression: Cellulitis Disposition: 01 HOME, SELF-CARE Condition: IMPROVED Referrals: PCP,ANTONIO (PCP) Patient Instructions: Cellulitis Additional Instructions: Take medication as previously prescribed. Follow-up with your regular doctor in 2 days. If you do not have regular doctor list of local clinics will be provided for you. Apply warm compresses at least 4 times a day for 15 minutes at a time. Return to the ER if worsening pain, swelling, or any other concerns. Scripts Meloxicam (MELOXICAM) 7.5 Mg Tablet 7.5 MG PO DAILY for PAIN, #20 TAB Prov: ELROYJORDIMEGAN IRVING 10/18/18 Incision and Drainage Indication: Blister of right calf] Procedure: The patient was positioned appropriately and the skin over the incision site was prepped in a sterile manner. Local anesthesia was not provided. An needle aspiration was made of the material in the blister on the right calf and 1-2 mL of clear material was expressed. This was then covered with a sterile bandage. The patient tolerated the procedure well:]. Complications: None Problem Qualifiers Primary Impression: Cellulitis Site of cellulitis: extremity Site of cellulitis of extremity: lower extremity Laterality: right Qualified Codes: L03.115 - Cellulitis of right lower limb MGEAN COLEMAN DO Oct 18, 2018 02:50
[2018-10-18] MEDS ORDERED: CLINDAMYCIN HCL 150 MG CAPSULE PO ONE (03:00)
== END 2018-10-18 03:00 | disposition home or self-care (01) ==
LOC: ER 02:17
DX: L03.115 Cellulitis of right lower limb (principal); E11.9 Type 2 diabetes mellitus without complications; M79.7 Fibromyalgia; K21.9 Gastro-esophageal reflux disease without esophagitis; Z88.8 Allergy status to other drugs, medicaments and biological substances
CPT/HCPCS: 10120; 10160; 87070; 99284

== ENCOUNTER 2019-07-06 23:26 | Emergency (ER) | payer SELFPAY ==
[~2019-07-06] VITALS: Ht 167.6 cm; Wt 81.8 kg
--- NOTE | 2019-07-06 23:39 | PHYS DOC ---
Past History Past Medical History: Diabetes, Fibromyalgia, GERD, UTI Past Medical History Hx. of herpetic lesions- vaginal Past Surgical History: No Surgical History Smoking: Non-smoker Alcohol Use: None Drug Use: None Adult General Chief Complaint Chief Complaint: ".. I got problems.. down... in my vaginal area...."...." I think I am having a herpies out break... " .." I ve had it before... Usually get's... small outbreak about twice a year....this one is much more painful..." HPI HPI Patient is a 48 year old female who presents with above hx and complaints labial blisters- similar to prior outbreaks of herpes. Patient advised she has small outbreaks approximately twice a year. Patient denies any history of other STDs other than bacterial vaginosis. Patient has had only one sexual partner for the last 20 some years. Patient first diagnosed with herpes in 1991 after significant out break on her vaginal area. . Patient does have a history of diabetes and fibromyalgia. Patient states last HIV check was negative approximately 2 years ago. Patient normally follows at [facility]. Her last glucose checks were all less than 200. Patient has complaints of subjective fever. Does complain of dysuria. Her has no symptoms. She denies any history of trauma to the vaginal area no instrumentation. Review of Systems Review of Systems Constitutional: Subjective complaints of fever Eyes: Denies change in visual acuity, redness, or eye pain [] HENT: Denies nasal congestion or sore throat [] Respiratory: Denies cough or shortness of breath [] Cardiovascular: No additional information not addressed in HPI [] GI: Denies abdominal pain, nausea, vomiting, bloody stools or diarrhea. Complaints of blisters on her labia-primary on right side : Complaints of dysuria Musculoskeletal: Denies back pain or joint pain [] Integument: Denies rash or skin lesions [] Neurologic: Denies headache, focal weakness or sensory changes [] Endocrine: Denies polyuria or polydipsia [] All other systems were reviewed and found to be within normal limits, except as documented in this note. Family History Family History Diabetes & hypertension Current Medications Current Medications See nursing for home meds Allergies Allergies Allergies Coded Allergies Type Severity Reaction Last Updated Verified I S O L A T I O N *CONTACT* Allergy Unknown 10/24/18 Yes metformin Allergy Unknown 08/12/16 Yes Physical Exam Physical Exam Constitutional: in acute distress, non-toxic appearance. [] HENT: Normocephalic, atraumatic, bilateral external ears normal, oropharynx moist, no oral exudates, nose normal. Poor dentition Eyes: PERRLA, EOMI, conjunctiva normal, no discharge. [] Neck: Normal range of motion, no tenderness, supple, no stridor. [] Cardiovascular:Heart rate regular rhythm, no murmur [] Lungs & Thorax: Bilateral breath sounds equal apex with scattered wheezes on auscultation [] Abdomen: Bowel sounds normal, soft, no tenderness, no masses, no pulsatile masses. [] Vaginal labia very injected with obvious blisters on right labia with typical appearance of herpes. Some minimal vaginal discharge. Skin: Warm, dry, no erythema, no rash. [] Back: No tenderness, no CVA tenderness. [] Extremities: No tenderness, no cyanosis, no clubbing, ROM intact, no edema. [] Neurologic: Alert and oriented X 3, normal motor function, normal sensory function, no focal deficits noted. [] Psychologic: Affect anxious, judgement normal, mood normal. [] EKG EKG [] Radiology/Procedures Radiology/Procedures [] Course & Med Decision Making Course & Med Decision Making Pertinent Labs and Imaging studies reviewed. (See chart for details) Patient to take this likely or 200 mg 5 times a day. For the next 10 days. Patient take Keflex 500 mg 3 times a day for urinary tract infection. Patient follow-up pending cultures. Patient follow-up pending urine cultures. Patient take Tylenol and ibuprofen for pain. For marked pain take Vicoprofen or Percocet. Practice safe sex. Consider use of acyclovir suppression. Follow-up blood sugars regularly. After completing Keflex course take Diflucan for 100 mg daily for 3 days. Return if any concerns. Follow-up primary care. Encouraged patient to stop smoking Impression: 1. UTI 2. Genital Herpes [] Dragon Disclaimer Dragon Disclaimer This electronic medical record was generated, in whole or in part, using a voice recognition dictation system. Departure Departure: Disposition: 01 HOME/RESIDENCE PRIOR TO ADM Condition: STABLE Referrals: PCP,NO (PCP) Scripts Hydrocodone/Ibuprofen (HYDROCODONE-IBUPROFEN 7.5-200 ) 1 Each Tablet 1 TAB PO PRN Q6HRS PRN for PAIN, #30 TAB 0 Refills Prov: RASHI CHATMAN MD 07/07/19 Fluconazole (DIFLUCAN) 100 Mg Tablet 100 MG PO DAILY for post Keflex use for 3 Days, #3 TAB Prov: RASHI CHATMAN MD 07/07/19 Cephalexin (KEFLEX) 500 Mg Capsule 500 MG PO TID for uti for 10 Days, BOTTLE Prov: RASHI CHATMAN MD 07/07/19 Acyclovir (ACYCLOVIR) 200 Mg Capsule 200 MG PO 5 x day for herpies for 10 Days, CAP Prov: RASHI CHATMAN MD 07/07/19 Dragon Disclaimer This chart was dictated in whole or in part using Voice Recognition software in a busy, high-work load, and often noisy Emergency Department environment. It may contain unintended and wholly unrecognized errors or omissions. Dragon Disclaimer This chart was dictated in whole or in part using Voice Recognition software in a busy, high-work load, and often noisy Emergency Department environment. It may contain unintended and wholly unrecognized errors or omissions. RASHI CHATMAN MD Jul 06, 2019 23:39
[2019-07-07 00:50] LABS: BARBITURATES NEG (NEG); BENZODIAZEPINES NEG (NEG); CANNABINOIDS POS (NEG); COCAINE NEG (NEG); METHADONE NEG (NEG); OPIATES NEG (NEG); PHENCYCLIDINE NEG (NEG)
[2019-07-07 00:54] LABS: AMPHETAMINE/METHAMPHETAMINE NEG (NEG)
[2019-07-07 00:59] LABS: BILIRUBIN,URINE NEG (NEG); CLARITY,URINE CLOUDY; COLOR,URINE YELLOW; GLUCOSE,URINE >=1000 mg/dL (NEG)
[2019-07-07 01:00] LABS: BACTERIA,URINE MANY /HPF (0-FEW); NITRITE,URINE NEG (NEG); SQUAMOUS EPITHELIAL CELL,UR MOD /LPF; UROBILINOGEN,URINE 0.2 mg/dL (0.2 mg/dL); WBC,URINE 20-40 /HPF (0-4)
[2019-07-07] MEDS ORDERED: cefTRIAXone IM 1 GM VIAL IM ONE (02:00)
[2019-07-07 02:08] LABS: U PREG PATIENT NEGATIVE (NEG)
[2019-07-07] MEDS ORDERED: KETOROLAC 60 MG/2 ML VIAL. IM ONE (02:30)
[2019-07-07] MEDS ORDERED: CEPH-264 PO (02:57)
[2019-07-07] MEDS ORDERED: FLUC100T7 PO (02:57)
[2019-07-07] MEDS ORDERED: ACYC-63 PO (02:57)
[2019-07-07] MEDS ORDERED: HYDR-1179 PO (02:57)
[2019-07-07] MEDS ORDERED: ACYCLOVIR 200 MG CAPSULE PO ONE (03:00)
[2019-07-07] MEDS ORDERED: FLUCONAZOLE 100 MG TABLET. PO ONE (03:15)
[2019-07-07 03:32] VITALS: BP 141/92
== END 2019-07-07 03:33 | disposition home or self-care (01) ==
LOC: ER 23:26
DX: N39.0 Urinary tract infection, site not specified (principal); A60.04 Herpesviral vulvovaginitis; E11.9 Type 2 diabetes mellitus without complications; M79.7 Fibromyalgia; K21.9 Gastro-esophageal reflux disease without esophagitis; Z87.440 Personal history of urinary (tract) infections; Z91.041 Radiographic dye allergy status; Z88.8 Allergy status to other drugs, medicaments and biological substances
CPT/HCPCS: 36415; 80307; 81001; 81025; 87086; 87491; 87591; 96372; 99284; J0696; J1885

== ENCOUNTER 2019-09-14 16:13 | Emergency (ER) | payer SELFPAY ==
[~2019-09-14] VITALS: Ht 167.6 cm; Wt 81.8 kg
[~2019-09-14 16:13] MED LIST changes: +ACYC-63 PO; +CEPH-264 PO; +FLUC100T7 PO; +HYDR-1179 PO
[2019-09-14 16:18] VITALS: BP 118/72
--- NOTE | 2019-09-14 17:21 | PHYS DOC ---
Past History Past Medical History: Diabetes, Fibromyalgia, GERD, UTI Past Surgical History: No Surgical History Smoking: Non-smoker Alcohol Use: None Drug Use: None Adult General Chief Complaint Chief Complaint: LOWER EXT PAIN [facility] HPI Patient is a 48 year old female who presents with complaint of redness and swelling to the right lower leg. Patient states that she was seen at another emergency department 4 days ago and was diagnosed with cellulitis of the right lower leg. Has had previous history of cellulitis to the same area. Notes that she was prescribed Bactrim, Keflex, and pain medication. She states however she did not get this filled as she has not been able to afford the medication at this time. She denies associated fever. Has noted drainage from the affected area. No shortness of breath, dizziness, or lymphangitic streaking. Review of Systems Review of Systems Constitutional: Denies fever or chills [] Eyes: Denies change in visual acuity, redness, or eye pain [] HENT: Denies nasal congestion or sore throat [] Respiratory: Denies cough or shortness of breath [] Cardiovascular: No additional information not addressed in HPI [] GI: Denies abdominal pain, nausea, vomiting, bloody stools or diarrhea [] : Denies dysuria or hematuria [] Musculoskeletal: Denies back pain or joint pain [] Integument: Redness, warmth, and drainage from right lower leg [] Neurologic: Denies headache, focal weakness or sensory changes [] All other systems were reviewed and found to be within normal limits, except as documented in this note. Allergies Allergies Allergies Coded Allergies Type Severity Reaction Last Updated Verified I S O L A T I O N *CONTACT* Allergy Unknown 10/24/18 Yes metformin Allergy Unknown 08/12/16 Yes Physical Exam Physical Exam Constitutional: Well developed, well nourished, no acute distress, non-toxic appearance. [] HENT: Normocephalic, atraumatic, bilateral external ears normal, oropharynx moist, no oral exudates, nose normal. [] Eyes: PERRLA, EOMI, conjunctiva normal, no discharge. [] Neck: Normal range of motion, no tenderness, supple, no stridor. [] Cardiovascular:Heart rate regular rhythm, no murmur [] Lungs & Thorax: Bilateral breath sounds clear to auscultation [] Abdomen: Bowel sounds normal, soft, no tenderness, no masses, no pulsatile masses. [] Skin: Warm, dry, 2.5 cm indurated lesion with central drainage of purulence noted, no fluctuance, surrounding induration and erythema present, no lymphangitic streaking. [] Back: No tenderness, no CVA tenderness. [] Extremities: No tenderness, no cyanosis, no clubbing, ROM intact, no edema. [] Neurologic: Alert and oriented X 3, normal motor function, normal sensory function, no focal deficits noted. [] Current Patient Data Vital Signs Vital Signs Date Time Temp Pulse Resp B/P (MAP) Pulse Ox O2 Delivery O2 Flow Rate FiO2 09/14/19 16:18 98.0 95 16 118/72 (87) 99 Room Air Lab Results Not performed EKG EKG Not performed [] Radiology/Procedures Radiology/Procedures Not performed [] Course & Med Decision Making Course & Med Decision Making Pertinent Labs and Imaging studies reviewed. (See chart for details) Vital signs are stable and patient is in no acute distress at this time. The patient's cellulitis does have purulence associated with it though there is no discrete abscess pocket to drain at this time. Bactrim and Keflex appear to be appropriate options for treatment for this patient. The patient was given oral doses of both in the emergency department. The patient was provided with prescription cards to assist with expense of antibiotics that were prescribed to her at her previous visit. Advised to fill these medications and started on them as soon as possible as this will help treat and likely resolve the patient's current outbreak of cellulitis of the right lower leg. Recommend follow-up with primary doctor in the next 3 to 5 days for reevaluation. Advised return to the emergency department for any worsening symptoms. Patient voiced understanding and agreement with treatment plan. PPE: I, Brandyn Beltran MD, wore a level 3 mask, eye protection, and gloves during this patient encounter. [] Dragon Disclaimer Dragon Disclaimer This electronic medical record was generated, in whole or in part, using a voice recognition dictation system. Departure Departure: Impression: Primary Impression: Cellulitis Disposition: 01 HOME/RESIDENCE PRIOR TO ADM Condition: STABLE Referrals: PCP,NO (PCP) Patient Instructions: Cellulitis Additional Instructions: Be sure to start on the antibiotics that were prescribed at your previous emergency department visit for treatment of your skin infection. Follow-up with your primary doctor in the next 3 to 5 days for reevaluation. Return to the emergency department for any worsening symptoms. Problem Qualifiers Primary Impression: Cellulitis Site of cellulitis: extremity Site of cellulitis of extremity: lower extremity Laterality: right Qualified Codes: L03.115 - Cellulitis of right lower limb BRANDYN BELTRAN MD September 14, 2019 17:21
[2019-09-14] MEDS ORDERED: CEPHALEXIN 250 MG CAPSULE PO ONE (17:30)
[2019-09-14] MEDS ORDERED: SMZ/TMP 800/160MG TABLET. PO ONE (17:30)
== END 2019-09-14 17:30 | disposition home or self-care (01) ==
LOC: ER 16:13
DX: L03.115 Cellulitis of right lower limb (principal); E11.9 Type 2 diabetes mellitus without complications; M79.7 Fibromyalgia; K21.9 Gastro-esophageal reflux disease without esophagitis; Z87.440 Personal history of urinary (tract) infections; Z91.041 Radiographic dye allergy status; Z88.8 Allergy status to other drugs, medicaments and biological substances
CPT/HCPCS: 99283

== ENCOUNTER → 2019-11-22 | Outpatient (CLI) | payer OTHER ==
--- NOTE | 2019-11-22 15:19 | RAD ---
DATE: 11/22/2019 2:14 PM EXAM: MAMMO VICTORIANO FLORES, BREAST LEFT HISTORY: 48-year-old woman with palpable lump in the left breast on self exam, present for the past 6 months. She is due for screening. COMPARISON: None available. This will serve as a new baseline. TECHNIQUE: Bilateral full field craniocaudal and mediolateral oblique images were obtained using digital technique. This study was interpreted with the benefit of Computerized Aided Detection (CAD). Targeted ultrasound of the left breast in the area of palpable concern was performed. FINDINGS: Breast Density: DENSE The breast Parenchyma is dense, which could reduce the sensitivity of mammography. Breast parenchyma level density D. The right mammogram is negative. There is global asymmetry in the breast parenchyma with greater density of breast tissue in the superior left breast compared with the right or inferior left breast. The area of palpable concern correlates with the anterior aspect of this area of palpable concern but shows no definite mammographic correlate. No suspicious masses, microcalcifications or architectural distortion is present to suggest malignancy in either breast. The visualized axillae are unremarkable. Targeted ultrasound of the area of palpable concern at the left 12:00 position 5 cm from the nipple shows an interruption in the echogenic dense glandular tissue by somewhat irregular, shadowing tissue asymmetry. This is mildly suspicious. Ultrasound-guided biopsy recommended. IMPRESSION: Palpable asymmetry of the left 12:00 position 5 cm from the nipple is mildly suspicious. Ultrasound-guided core needle biopsy is recommended. BI-RADS CATEGORY: 4 SUSPICIOUS ABNORMALITY- BIOPSY SHOULD BE CONSIDERED RECOMMENDED FOLLOW-UP: BIO BIOPSY RECOMMENDED discussed with the patient's referring nurse practitioner Monie Rosales by telephone at 3:00 PM on 11/22/2019. PQRS compliance statement: Patient information was entered into a reminder system with a target due date for the next mammogram. Mammography is a sensitive method for finding small breast cancers, but it does not detect them all and is not a substitute for careful clinical examination. A negative mammogram does not negate a clinically suspicious finding and should not result in delay in biopsying a clinically suspicious abnormality. "Our facility is accredited by the [employer] Mammography Program."
== END | disposition home or self-care (01) ==
LOC: MAMMO 14:02
PROVIDERS: ATTEND Nurse Practitioner Family
DX: R92.2 Inconclusive mammogram (principal); N63.22 Unspecified lump in the left breast, upper inner quadrant
CPT/HCPCS: 76641; 77066; G0279; 77062

== ENCOUNTER 2020-05-19 10:39 | Emergency (ER) | payer OTHER ==
[~2020-05-19] VITALS: Ht 167.6 cm; Wt 81.8 kg
[~2020-05-19 10:39] MED LIST changes: -CLIN300C8 PO; +CLIN300C9 PO
[2020-05-19] MEDS ORDERED: KETOROLAC 60 MG/2 ML VIAL. IM ONE (11:15)
[2020-05-19] MEDS ORDERED: METHOCARBAMOL 500 MG TABLET PO ONE (11:30)
--- NOTE | 2020-05-19 11:37 | PHYS DOC ---
Past History Past Medical History: Diabetes, Fibromyalgia, GERD, UTI Past Surgical History: Tubal ligation Smoking: Non-smoker Alcohol Use: None Drug Use: None Adult General Chief Complaint Chief Complaint: MULTIPLE COMPLAINTS [facility] HPI Patient is a 49-year-old female who presents to the emergency room complaining of severe diffuse body aches and burning. Patient states she has fibromyalgia and she thinks she is having a fibromyalgia exacerbation. She states that is never been this bad before. She follows with her primary care doctor who prescribes her medications. She is currently on gabapentin for her pain. She has been taking all of her medications as prescribed. She has not tried anything additional for her pain. Of note she also has some runny nose, shortness of breath, chest tightness. She states she does sometimes have a chest tightness but is not typical for her to have drainage. She does not believe that she has been exposed to any illnesses. Review of Systems Review of Systems Complete ROS is negative unless otherwise documented in HPI Current Medications Current Medications Current Medications Medications (Trade) Dose Ordered Sig/Stephanie Start Time Stop Time Status Last Admin Dose Admin Ketorolac Tromethamine (Toradol Im) 60 mg 1X ONCE 05/19/20 11:15 05/19/20 11:19 DC Methocarbamol (Robaxin) 500 mg 1X ONCE 05/19/20 11:30 05/19/20 11:31 Allergies Allergies Allergies Coded Allergies Type Severity Reaction Last Updated Verified I S O L A T I O N *CONTACT* Allergy Unknown 10/24/18 Yes metformin Allergy Unknown 08/12/16 Yes Physical Exam Physical Exam General: Awake, alert, NAD. Well Nourished, well hydrated. Cooperative HEENT: Atraumatic, EOMI, PERRL, airway patent, moist oral mucosa Neck: Supple, trachea midline Respiratory: CTA bilaterally, normal effort, no wheezing/crackles CV: RRR, no murmur, cap refill <2 GI: Soft, nondistended, nontender, no masses MSK: No obvious deformities Skin: Warm, dry, intact Neuro: A&O x3, speech NL, sensory and motor grossly intact, no focal deficits Psych: Normal affect, normal mood, not suicidal or homicidal Current Patient Data Vital Signs Vital Signs Date Time Temp Pulse Resp B/P (MAP) Pulse Ox O2 Delivery O2 Flow Rate FiO2 05/19/20 10:44 97.8 98 16 141/89 (106) 100 Room Air EKG EKG [] Radiology/Procedures Radiology/Procedures [] Heart Score Risk Factors: Risk Factors: DM, Current or recent (<one month) smoker, HTN, HLP, family history of CAD, obesity. Risk Scores: Risk Factors: DM, Current or recent (<one month) smoker, HTN, HLP, family history of CAD, obesity. Course & Med Decision Making Course & Med Decision Making Pertinent Labs and Imaging studies reviewed. (See chart for details) Patient is a 49-year-old female who presents to the emergency room complaining of diffuse body aches. Patient has a history of fibromyalgia and believes that she is having a fibromyalgia exacerbation. Patient is overall well-appearing. She does have some URI symptoms. Influenza and Covid swabs were done. Chest x- ray was done due to chest tightness. She does not have any hypoxia or shortness of breath. Will do Toradol and Robaxin here in the emergency room. I discussed with the patient that she should follow-up with her primary care physician for adjustments in her fibromyalgia medications. Patient's test results and vitals while in the ED were fully reviewed and discussed with the patient. Patient is stable and at this time does not need admission to the hospital. We have discussed strict return precautions and the importance of following up with their Primary Care Physician. Patient stated understanding and was given an opportunity to ask any questions. Patient is in agreement with plan. Dragon Disclaimer Dragon Disclaimer This electronic medical record was generated, in whole or in part, using a voice recognition dictation system. Departure Departure: Impression: Primary Impression: Body aches Additional Impression: Fibromyalgia Disposition: 01 DC HOME SELF CARE/HOMELESS Condition: STABLE Referrals: DEANNE MALLORY (PCP) Patient Instructions: Fibromyalgia Problem Qualifiers PARISH VINES MD May 19, 2020 11:37
[2020-05-19 11:59] LABS: INFLUENZA A PATIENT NEGATIVE (NEGATIVE); INFLUENZA B PATIENT NEGATIVE (NEGATIVE)
--- NOTE | 2020-05-19 12:21 | RAD ---
EXAM: Chest, single view. HISTORY: Shortness of breath. COMPARISON: None. FINDINGS: A frontal view of the chest obtained. There is no infiltrate, pleural effusion or pneumotho rax. The heart is normal in size. IMPRESSION: No acute pulmonary finding. Electronically signed by: Olamide Jefferson MD (05/19/2020 12:08 PM) [facility]
[2020-05-19 12:33] VITALS: BP 139/86
== END 2020-05-19 12:36 | disposition home or self-care (01) ==
LOC: ER 10:39
DX: M79.7 Fibromyalgia (principal); Z20.822 Contact with and (suspected) exposure to COVID-19; R20.8 Other disturbances of skin sensation; R06.02 Shortness of breath; E11.9 Type 2 diabetes mellitus without complications; K21.9 Gastro-esophageal reflux disease without esophagitis; Z98.51 Tubal ligation status; Z88.8 Allergy status to other drugs, medicaments and biological substances
CPT/HCPCS: 71045; 87804; 96372; 99284; C9803; J1885; U0003

== ENCOUNTER → 2020-06-25 | Outpatient (CLI) | payer OTHER ==
[~2020-06-25] MED LIST changes: +AMLO-187 PO; +ATOR40TA59 PO; +DULO60CA6 PO; +GABA600T7 PO; +HYDR-2155 PO; +HYDR12.58 PO; +INSU100I13 SQ; +LISI40TA6 PO; +OMEP40CA45 PO; +RISP1TAB88 PO; +SITA100T PO
== END ==
LOC: LAB 14:00
PROVIDERS: ATTEND Nurse Anesthetist, Certified Registered
DX: Z01.812 Encounter for preprocedural laboratory examination (principal); Z13.9 Encounter for screening, unspecified; R12 Heartburn; R13.10 Dysphagia, unspecified; Z20.822 Contact with and (suspected) exposure to COVID-19
CPT/HCPCS: C9803; U0003

== ENCOUNTER → 2020-06-28 | Day surgery (SDC) | payer OTHER ==
[~2020-06-28] MED LIST changes: -HYDR-2155 PO; +IPRATRPIUM/ALBUTEROL 0.5/2.5MG 3 ML NEBU. NEB PRN; +IV RINGERS SOLUTION,LACTATED 1,000 ML IV SCH; +LIDOCAINE 2% PF 5 ML VIAL. ONE; +MIDAZOLAM HCL PF 2 MG/2 ML VIAL. IV ONE; +ONDANSETRON PF 4 MG/2 ML VIAL. IV PRN; +PROPOFOL 10,000 MCG/ML (20ML) VIAL IV ONE
[2020-06-28 13:40] VITALS: BP 156/93
--- NOTE | 2020-07-03 14:09 | PATHOLOGY ---
[facility] Accession Number: [id number] . 01 Material submitted: . PART A: stomach - ANTRUM BIOPSY. Modifiers: ANTRUM PART B: sigmoid colon - SIGMOID COLON POLYP BIOPSY . 01 Clinical history: . PRE-OPERATIVE DIAGNOSIS: GERD OPERATIVE PROCEDURE: EGD/COLONOSCOPY . 02 Diagnosis: A. Gastric biopsies, antrum: - Chronic gastritis, mild. . B. Colorectal biopsy, sigmoid colon polyp: - Hyperplastic polyp. (JPM:amarjit; 07/03/2020) QMS 07/03/2020 1038 Local . 02 Comment: Sections of the gastric biopsy reveal gastric antral/body transition mucosa showing congestion and mild chronic inflammation. A properly controlled immunoperoxidase stain for Helicobacter is negative for Helicobacter organisms. . Sections of the sigmoid colon biopsy reveal a hyperplastic polyp. There are no adenomatous changes or evidence of malignancy. (JPM:amarjit; 07/03/2020) . Special stain performed: Immunoperoxidase stain for Helicobacter on A1 . 02 Electronically signed: . Bear Nieves MD, Pathologist NPI- [id number] . 01 Gross description: . A. The specimen is received in formalin, labeled "Dagmar Serrano, antrum biopsy". Received are two segments of pale mason tissue measuring 0.3 and 0.5 cm in maximum dimensions. The specimen is submitted entirely in cassette A1. . B. The specimen is received in formalin, labeled "Dagmar Perezy, sigmoid colon polyp biopsy". Received is a segment of pale mason tissue measuring 0.4 cm in maximum dimensions. The specimen is submitted entirely in cassette B1. (CAA; 07/02/2020) QAC/QAC 07/02/2020 1348 Local . 02 Pathologist provided ICD-10: K29.50, K63.5 . 02 CPT . 598491, 865329, [id number] Specimen Comment: A courtesy copy of this report has been sent to [phone] Specimen Comment: Report sent to Performed at: 01 [facility] [address] [id number] MD Gorge Mcduffie MD Phone: [phone] Performed at: 02 [facility] [address] [place], [place] [id number] MD Bear Nieves MD Phone: [phone]
== END | disposition home or self-care (01) ==
LOC: SURG 11:00
PROVIDERS: ATTEND Internal Medicine Gastroenterology
DX: Z12.11 Encounter for screening for malignant neoplasm of colon (principal); R13.10 Dysphagia, unspecified; R12 Heartburn; K64.0 First degree hemorrhoids; K44.9 Diaphragmatic hernia without obstruction or gangrene; K22.2 Esophageal obstruction; K29.50 Unspecified chronic gastritis without bleeding; K63.5 Polyp of colon; E11.9 Type 2 diabetes mellitus without complications; M79.10 Myalgia, unspecified site; F31.9 Bipolar disorder, unspecified; K21.9 Gastro-esophageal reflux disease without esophagitis; Z88.8 Allergy status to other drugs, medicaments and biological substances; Z79.899 Other long term (current) drug therapy; Z79.4 Long term (current) use of insulin; Z87.440 Personal history of urinary (tract) infections; Z90.710 Acquired absence of both cervix and uterus; Z91.041 Radiographic dye allergy status; Z98.51 Tubal ligation status
CPT/HCPCS: 43239; 43450; 45380; 82947; J2001; J2704; J7120

== ENCOUNTER 2020-07-17 11:18 | Emergency (ER) | payer OTHER ==
[~2020-07-17] VITALS: Ht 167.6 cm; Wt 84.6 kg
[~2020-07-17 11:18] MED LIST changes: -IPRATRPIUM/ALBUTEROL 0.5/2.5MG 3 ML NEBU. NEB PRN; -IV RINGERS SOLUTION,LACTATED 1,000 ML IV SCH; -LIDOCAINE 2% PF 5 ML VIAL. ONE; -MIDAZOLAM HCL PF 2 MG/2 ML VIAL. IV ONE; -ONDANSETRON PF 4 MG/2 ML VIAL. IV PRN; -PROPOFOL 10,000 MCG/ML (20ML) VIAL IV ONE
[2020-07-17 11:30] VITALS: BP 110/86
--- NOTE | 2020-07-17 11:36 | PHYS DOC ---
Past History Past Medical History: Diabetes, Fibromyalgia, GERD, UTI Past Surgical History: Tubal ligation Smoking: Non-smoker Alcohol Use: None Drug Use: None General Adult HPI: HPI: Patient is a [age] year old [sex] who presents with [] Review of Systems: Review of Systems: Constitutional: Denies fever or chills Eyes: Denies change in visual acuity HENT: Denies nasal congestion or sore throat Respiratory: Denies cough or shortness of breath Cardiovascular: Denies chest pain or edema GI: Denies abdominal pain, nausea, vomiting, bloody stools or diarrhea : Denies dysuria Musculoskeletal: Denies back pain or joint pain Integument: Denies rash Neurologic: Denies headache, focal weakness or sensory changes Endocrine: Denies polyuria or polydipsia Lymphatic: Denies swollen glands Psychiatric: Denies depression or anxiety Allergies: Allergies: Allergies Coded Allergies Type Severity Reaction Last Updated Verified I S O L A T I O N *CONTACT* Allergy Unknown 06/28/20 Yes metformin Allergy Unknown 08/12/16 Yes Physical Exam: PE: Constitutional: Well developed, well nourished, no acute distress, non-toxic appearance. [] HENT: Normocephalic, atraumatic, bilateral external ears normal, oropharynx moist, no oral exudates, nose normal. [] Eyes: PERRLA, EOMI, conjunctiva normal, no discharge. [] Neck: Normal range of motion, no tenderness, supple, no stridor. [] Cardiovascular:Heart rate regular rhythm, no murmur [] Lungs & Thorax: Bilateral breath sounds clear to auscultation [] Abdomen: Bowel sounds normal, soft, no tenderness, no masses, no pulsatile masses. [] Skin: Warm, dry, no erythema, no rash. [] Back: No tenderness, no CVA tenderness. [] Extremities: No tenderness, no cyanosis, no clubbing, ROM intact, no edema. [] Neurologic: Alert and oriented X 3, normal motor function, normal sensory function, no focal deficits noted. [] Psychologic: Affect normal, judgement normal, mood normal. [] EKG: EKG: [] Radiology/Procedures: Radiology/Procedures: [] Heart Score: Risk Factors: Risk Factors: DM, Current or recent (<one month) smoker, HTN, HLP, family history of CAD, obesity. Risk Scores: Score 0 - 3: 2.5% MACE over next 6 weeks - Discharge Home Score 4 - 6: 20.3% MACE over next 6 weeks - Admit for Clinical Observation Score 7 - 10: 72.7% MACE over next 6 weeks - Early Invasive Strategies Course & Med Decision Making: Course & Med Decision Making Pertinent Labs and Imaging studies reviewed. (See chart for details) [] Dragon Disclaimer: Dragon Disclaimer: This electronic medical record was generated, in whole or in part, using a voice recognition dictation system. Departure Departure: Impression: Primary Impression: Anxiety Disposition: 01 DC HOME SELF CARE/HOMELESS Condition: STABLE Referrals: DEANNE MALLORY (PCP) Patient Instructions: Anxiety and Panic Attacks, Gfyp-[id number]-Lffo Additional Instructions: Please follow up with your therapist/mental health professional regarding further treatment for your anxiety RAQUEL STAFFORD DO Jul 17, 2020 11:36
[2020-07-17] MEDS ORDERED: LORazepam 1 MG TABLET ONE (11:40)
[2020-07-17] MEDS ORDERED: LORazepam 1 MG TABLET PO ONE (11:45)
== END 2020-07-17 12:21 | disposition home or self-care (01) ==
LOC: ER 11:18
DX: F41.9 Anxiety disorder, unspecified (principal); E11.9 Type 2 diabetes mellitus without complications; M79.7 Fibromyalgia; K21.9 Gastro-esophageal reflux disease without esophagitis; Z87.440 Personal history of urinary (tract) infections; Z98.51 Tubal ligation status; Z88.8 Allergy status to other drugs, medicaments and biological substances
CPT/HCPCS: 99283

== ENCOUNTER 2020-07-29 06:51 | Emergency (ER) | payer OTHER ==
[~2020-07-29] VITALS: Ht 167.6 cm; Wt 83.9 kg
[2020-07-29] MEDS ORDERED: KETOROLAC 30 MG/ML VIAL. IVP ONE (07:15)
[2020-07-29] MEDS ORDERED: IV NORMAL SALINE 1,000ML 1,000 ML IV ONE (07:15)
--- NOTE | 2020-07-29 07:20 | PHYS DOC ---
Past History Past Medical History: Bipolar, Depression, Diabetes, Fibromyalgia, GERD, Kidney Stones, UTI Additional Past Medical Histor: neuropathy Past Surgical History: Tubal ligation Additional Past Surgical Histo: debridement right leg Smoking: Cigarettes Additional Smoking Information: pt reports to smoking cigars Alcohol Use: None Drug Use: Marijuana Adult General Chief Complaint Chief Complaint: FLANK PAIN HPI HPI Patient is a 49-year-old female presenting via POV for left flank pain. Onset was approximately 1 week ago without any known inciting event, trauma or ingestion. Everything makes worse specifically p.o. intake and urinating. Nothing makes better. Patient reports sharp left flank pain that has began to radiate into her left groin and pubic region. States she has not taken anything in attempt to alleviate the pain because "I only take strong stuff for my fibromyalgia so if I do not have any of that, I do not take any of the weak stuff". Timing of symptoms has been constant since onset and worsening. Patient was seen by her primary care physician 4 days ago in outpatient setting and had urinalysis performed, she does not know the results of these. She presents today due to ongoing pain and discomfort. Of note, patient denies fever, chills, vision changes, chest pain, shortness of breath, ripping or tearing chest or stomach pain, constipation, neurologic deficits Review of Systems Review of Systems Fourteen body systems of review of systems have been reviewed. See HPI for pertinent positives and negative responses, other mae all other systems are negative, non-pertinent or non-contributory Allergies Allergies Allergies Coded Allergies Type Severity Reaction Last Updated Verified I S O L A T I O N *CONTACT* Allergy Unknown 06/28/20 Yes metformin Allergy Unknown 07/29/20 Yes Physical Exam Physical Exam Constitutional: Well developed, well nourished, no acute distress, non-toxic appearance. HENT: Normocephalic, atraumatic, bilateral external ears normal, oropharynx moist, no oral exudates, nose normal. Eyes: PERRLA, EOMI, conjunctiva normal, no discharge. Neck: Normal range of motion, no tenderness, supple, no stridor. Cardiovascular: Heart rate regular, sinus rhythm, no murmurs rubs or gallops Lungs & Thorax: Bilateral breath sounds clear to auscultation Abdomen: Bowel sounds normal, soft, suprapubic tenderness with guarding present, no rebound, no masses, no pulsatile masses. Nonsurgical abdomen, no peritoneal signs Skin: Warm, dry, no erythema, no rash. Back: No tenderness, left CVA tenderness. Extremities: No tenderness, no cyanosis, no clubbing, ROM intact, no edema. Neurologic: Alert and oriented X 3, grossly normal motor & sensory function, no focal deficits noted. Psychologic: Affect normal, judgement normal, mood normal. Current Patient Data Vital Signs Vital Signs Date Time Temp Pulse Resp B/P (MAP) Pulse Ox O2 Delivery O2 Flow Rate FiO2 07/29/20 06:55 98.7 97 17 130/80 (97) 100 Room Air Lab Results Laboratory Tests Test 07/29/20 07:22 White Blood Count 7.1 x10^3/uL Red Blood Count 4.76 x10^6/uL Hemoglobin 12.5 g/dL Hematocrit 38.0 % Mean Corpuscular Volume 80 fL Mean Corpuscular Hemoglobin 26 pg Mean Corpuscular Hemoglobin Concent 33 g/dL Red Cell Distribution Width 14.1 % Platelet Count 221 x10^3/uL Neutrophils (%) (Auto) 67 % Lymphocytes (%) (Auto) 21 % Monocytes (%) (Auto) 11 % Eosinophils (%) (Auto) 1 % Basophils (%) (Auto) 0 % Neutrophils # (Auto) 4.7 x10^3uL Lymphocytes # (Auto) 1.5 x10^3/uL Monocytes # (Auto) 0.8 x10^3/uL Eosinophils # (Auto) 0.1 x10^3/uL Basophils # (Auto) 0.0 x10^3/uL Urine Collection Type Unknown Urine Color Yellow Urine Clarity Clear Urine pH 6.0 Urine Specific [place] 1.025 Urine Protein 30 mg/dl Urine Glucose (UA) 250 mg/dL Urine Ketones (Stick) Neg mg/dL Urine Blood Small Urine Nitrite Neg Urine Bilirubin Neg Urine Urobilinogen Dipstick 0.2 mg/dL Urine Leukocyte Esterase Neg Urine RBC 3-5 /HPF Urine WBC Rare /HPF Urine Squamous Epithelial Cells Mod /LPF Urine Bacteria Few /HPF Sodium Level 139 mmol/L Potassium Level 4.7 mmol/L Chloride Level 102 mmol/L Carbon Dioxide Level 30 mmol/L Anion Gap 7 Blood Urea Nitrogen 36 mg/dL Creatinine 1.5 mg/dL Estimated GFR (Cockcroft-Gault) 44.5 Glucose Level 269 mg/dL Calcium Level 9.4 mg/dL Current Medications Medications (Trade) Dose Ordered Sig/Stephanie Route PRN Reason Start Time Stop Time Status Last Admin Dose Admin Sodium Chloride 1,000 ml @ 1,000 mls/hr 1X ONCE IV 07/29/20 07:15 07/29/20 08:14 07/29/20 07:15 Ketorolac Tromethamine (Toradol 30mg Vial) 30 mg 1X ONCE IVP 07/29/20 07:15 07/29/20 07:28 DC 07/29/20 07:35 EKG EKG [] Radiology/Procedures Radiology/Procedures CT abdomen and pelvis without contrast PQRS statement: CT scans at this facility use dose reduction including either automated exposure control, iterative reconstructions, and /or weight based radiation dosing via mA and kV modification when appropriate to reduce radiation dose to as low as reasonably achievable. HISTORY: Left flank pain. Abdomen findings: Lung bases unremarkable. Shallow disc bulges L4-L5 and L5-S1 lumbar spine. Liver, gallbladder, pancreas, adrenals, spleen unremarkable. There is slightly increased density of the renal pyramids which may indicate very early changes of medullary nephrocalcinosis. There are a few tiny left renal calculi measuring 1 mm in size. The mid to distal right ureter is difficult to the following continuity due to absence of surrounding abdominal fat limiting characterization of potential small ureteral calculi separate from vascular calcifications from arterial vascular plaquing or venous phleboliths. In light of this on axial image 75 at the L5 vertebral level there is a new 2 mm calcification at the general region of the lower right ureter and gonadal vessels since the prior exam raising the possibility of a small ureteral calculus. No hydronephrosis. No perinephric stranding. Other numerous calcination surrounding both ureters are grossly stable and likely represent vascular calcifications. No obstruction or inflammation the GI tract. Appendix is negative. Abdominal aortic calcified plaque. No abdominal free fluid. Pelvis findings: Small volume of low-density free fluid cul-de-sac and posterior of the right adnexa. Numerous pelvic calcification likely phleboliths. No bladder calculi evident. The bladder wall is somewhat thickened likely due to underdistention. Retroverted uterus. Ovaries somewhat obscured by surrounding pelvic bowel loops. Rectum and bones are unremarkable. IMPRESSION: 1. Possible 2 mm lower right ureteral calculus. No hydronephrosis. See above. 2. Tiny nonobstructing left renal calculi. See above. 3. Appendix is negative. Electronically signed by: Ezio García MD (07/29/2020 8:06 AM) [id number] Heart Score C/O Chest Pain: No HEART Score for Chest Pain: HEART Score for Chest Pain Response (Comments) Value History Slighlty/Non-Suspicious 0 Age >45 - < 65 1 Risk Factors No Risk Factors 0 Total 1 Risk Factors: Risk Factors: DM, Current or recent (<one month) smoker, HTN, HLP, family history of CAD, obesity. Risk Scores: Risk Factors: DM, Current or recent (<one month) smoker, HTN, HLP, family history of CAD, obesity. Course & Med Decision Making Course & Med Decision Making Hemodynamically stable patient with HPI and physical examination concerning for left-sided kidney stone. Comprehensive ER work-up obtained and confirmed 2 mm left-sided stone IV fluid rehydration with 1 L normal saline and IV Toradol given with symptomatic improvement. Discussed ER findings with patient, discussed little role for further intervention in ER setting Discussed no indication for antibiotics and little benefit from adding Flomax given size and position of stone. Joint decision to discharge home with continued supportive care, straining urine, and utilizing Tylenol and NSAIDs for pain control. Patient requesting short-term prescription of narcotic pain medication for severe pain, I feel this is appropriate. I have given her extremely limited sup ply of [place] 5 for use of severe pain only after extensive education. Patient has good access to care with PCP, advised her to call them today to discuss need for repeat evaluation later this week. I advise there might be further role for antibiotics and/or specialist consultation if symptoms do not improve Strict return precautions discussed and understood by patient, all questions and concerns addressed prior to ER departure Dragon Disclaimer Dragon Disclaimer This electronic medical record was generated, in whole or in part, using a voice recognition dictation system. Departure Departure: Impression: Primary Impression: Kidney stone on left side Disposition: 01 DC HOME SELF CARE/HOMELESS Condition: IMPROVED Referrals: DEANNE MALLORY (PCP) Patient Instructions: Kidney Stones Additional Instructions: You were seen for flank pain and bloody urine. You have a 2 mm kidney stone on your left side that will hopefully pass. We are writing you a prescription for pain medication. You should strain your urine to look for the stone. You need to call your primary care physician for repeat evaluation in outpatient setting in upcoming 1 to 5 days, as discussed, there might be indication for antibiotic therapy and/or specialist consultation. You should return to the ED if you develop worsening pain, fever, continued bloody urine, lightheadedness, shortness of breath, chest pain, or any other new or concerning symptoms. Scripts Hydrocodone Bit/Acetaminophen (HYDROCODONE-APAP 5-325 ) 1 Each Tablet 1 TAB PO PRN Q6HRS PRN for PAIN, #7 TAB 0 Refills Prov: STEPHAN GILL DO 07/29/20 STEPHAN GILL DO Jul 29, 2020 07:20
[2020-07-29 07:39] LABS: BASO % 0 % (0-3); EOS # 0.1 x10^3/uL (0.0-0.7); EOS % 1 % (0-3); HEMOGLOBIN 12.5 g/dL (12.0-15.5); LYMPH # 1.5 x10^3/uL (1.0-4.8); LYMPH % 21 % (24-48); MEAN CORPUSCULAR HEMOGLOBIN 26 pg (25-35); MEAN CORPUSCULAR HGB CONC 33 g/dL (31-37); MEAN CORPUSCULAR VOLUME 80 fL (79-100); MONO # 0.8 x10^3/uL (0.0-1.1); MONO % 11 % (0-9); NEUT # 4.7 x10^3uL (1.8-7.7); NEUT % 67 % (31-73); PLATELET COUNT 221 x10^3/uL (140-400); RED BLOOD COUNT 4.76 x10^6/uL (3.50-5.40); RED CELL DISTRIBUTION WIDTH 14.1 % (11.5-14.5); WHITE BLOOD COUNT 7.1 x10^3/uL (4.0-11.0)
[2020-07-29 07:47] LABS: CALCIUM 9.4 mg/dL (8.5-10.1); CREATININE 1.5 mg/dL (0.6-1.0); GFR 44.5; POTASSIUM 4.7 mmol/L (3.5-5.1)
[2020-07-29 07:58] LABS: BILIRUBIN,URINE NEG (NEG); CLARITY,URINE CLEAR; COLOR,URINE YELLOW; GLUCOSE,URINE 250 mg/dL (NEG)
[2020-07-29 07:59] LABS: BACTERIA,URINE FEW /HPF (0-FEW); NITRITE,URINE NEG (NEG); SQUAMOUS EPITHELIAL CELL,UR MOD /LPF; UROBILINOGEN,URINE 0.2 mg/dL (0.2 mg/dL); WBC,URINE RARE /HPF (0-4)
--- NOTE | 2020-07-29 08:09 | RAD ---
CT abdomen and pelvis without contrast PQRS statement: CT scans at this facility use dose reduction including either automated exposure cont rol, iterative reconstructions, and /or weight based radiation dosing via mA and kV modification when appropriate to reduce radiation dose to as low as reasonably achievable. HISTORY: Left flank pain. Abdomen findings: Lung bases unremarkable. Shallow disc bulges L4-L5 and L5-S1 lumbar spine. Liver, g allbladder, pancreas, adrenals, spleen unremarkable. There is slightly increased density of the renal pyramids which may indicate very early changes of medullary nephrocalcinosis. There are a few tiny l eft renal calculi measuring 1 mm in size. The mid to distal right ureter is difficult to the followin g continuity due to absence of surrounding abdominal fat limiting characterization of potential small ureteral calculi separate from vascular calcifications from arterial vascular plaquing or venous phl eboliths. In light of this on axial image 75 at the L5 vertebral level there is a new 2 mm calcificat ion at the general region of the lower right ureter and gonadal vessels since the prior exam raising the possibility of a small ureteral calculus. No hydronephrosis. No perinephric stranding. Other nume ryley calcination surrounding both ureters are grossly stable and likely represent vascular calcificat ions. No obstruction or inflammation the GI tract. Appendix is negative. Abdominal aortic calcified p laque. No abdominal free fluid. Pelvis findings: Small volume of low-density free fluid cul-de-sac and posterior of the right adnexa. Numerous pelvic calcification likely phleboliths. No bladder calculi evident. The bladder wall is so mewhat thickened likely due to underdistention. Retroverted uterus. Ovaries somewhat obscured by surr ounding pelvic bowel loops. Rectum and bones are unremarkable. IMPRESSION: 1. Possible 2 mm lower right ureteral calculus. No hydronephrosis. See above. 2. Tiny nonobstructing left renal calculi. See above. 3. Appendix is negative. Electronically signed by: Ezio García MD (07/29/2020 8:06 AM) [id number]
[2020-07-29] MEDS ORDERED: HYDR-2155 PO (08:21)
[2020-07-29 08:35] VITALS: BP 138/77
== END 2020-07-29 08:32 | disposition home or self-care (01) ==
LOC: ER 06:51
DX: N20.0 Calculus of kidney (principal); Z88.1 Allergy status to other antibiotic agents; Z91.041 Radiographic dye allergy status; F31.9 Bipolar disorder, unspecified; K21.9 Gastro-esophageal reflux disease without esophagitis; Z87.440 Personal history of urinary (tract) infections; E11.40 Type 2 diabetes mellitus with diabetic neuropathy, unspecified; Z98.51 Tubal ligation status; F17.210 Nicotine dependence, cigarettes, uncomplicated
CPT/HCPCS: 36415; 74176; 80048; 81001; 85025; 96361; 96374; 99284; J1885; J7030

== ENCOUNTER 2020-08-16 11:23 | Emergency (ER) | payer OTHER ==
[~2020-08-16] VITALS: Ht 167.6 cm; Wt 79.0 kg
[~2020-08-16 11:23] MED LIST changes: -ACYC-63 PO; +ACYC200C84 PO; +HYDR-2155 PO
[2020-08-16 12:41] LABS: BACTERIA,URINE FEW /HPF (0-FEW); BILIRUBIN,URINE NEG (NEG); CLARITY,URINE HAZY; COLOR,URINE YELLOW; GLUCOSE,URINE NEG (NEG); NITRITE,URINE NEG (NEG); SQUAMOUS EPITHELIAL CELL,UR FEW /LPF; UROBILINOGEN,URINE 0.2 mg/dL (0.2 mg/dL); WBC,URINE 0 /HPF (0-4)
--- NOTE | 2020-08-16 13:43 | PHYS DOC ---
Past History Past Medical History: Diabetes, Fibromyalgia, High Cholesterol, Hypertension, Kidney Infection Additional Past Medical Histor: neuropathy Past Surgical History: Tubal ligation Additional Past Surgical Histo: leg surgery Smoking: Cigarettes Alcohol Use: None Drug Use: Marijuana General Adult EDM: Chief Complaint: DIZZY/LIGHT HEADED HPI: HPI: Patient is a 49-year-old female coming in for 3 days of lightheadedness, she describes it is worse with standing and improved with rest. Also complaining of bilateral mid abdominal pain that is worse on the left. Is had decreased urination which is darker. Denies any change in p.o. intake, vomiting, diarrhea or constipation. Denies any new medications. Says she has been checking her blood pressure at home and has been reading in the 80s. Is hypertensive here and states she did take her medications this morning. Review of Systems: Review of Systems: All other systems within normal limits except for as noted in the HPI Allergies: Allergies: Allergies Coded Allergies Type Severity Reaction Last Updated Verified I S O L A T I O N *CONTACT* Allergy Unknown 06/28/20 Yes metformin Allergy Unknown 07/29/20 Yes Physical Exam: PE: Constitutional: Well developed, well nourished, no acute distress, non-toxic appearance. [] HENT: Normocephalic, atraumatic, bilateral external ears normal, nose normal. [] Eyes: PERRLA, conjunctiva normal, no discharge. [] Neck: No rigidity, supple, no stridor. [] Cardiovascular: Regular rate and rhythm, brisk cap refill [] Lungs & Thorax: Non labored symmetric respirations, no tachypnea or respiratory distress [] Abdomen: Soft, nondistended. Skin: Warm, dry, no erythema, no rash. [] Back: Unremarkable Extremities: No deformities, range of motion grossly intact, no lower extremity edema [] Neurologic: Alert and oriented X 3, no focal deficits noted. [] Psychologic: Affect normal, judgement normal, mood normal. [] Current Patient Data: Labs: Laboratory Tests Test 08/16/20 11:52 Urine Collection Type Unknown Urine Color Yellow Urine Clarity [place]y Urine pH 6.0 Urine Specific [place] 1.020 Urine Protein Neg (NEG-TRACE) Urine Glucose (UA) Neg mg/dL (NEG) Urine Ketones (Stick) Neg mg/dL (NEG) Urine Blood Trace (NEG) Urine Nitrite Neg (NEG) Urine Bilirubin Neg (NEG) Urine Urobilinogen Dipstick 0.2 mg/dL (0.2 mg/dL) Urine Leukocyte Esterase Neg (NEG) Urine RBC 3-5 /HPF (0-2) Urine WBC 0 /HPF (0-4) Urine Squamous Epithelial Cells Few /LPF Urine Bacteria Few /HPF (0-FEW) Urine Mucus Slight /LPF Vital Signs: Vital Signs Date Time Temp Pulse Resp B/P (MAP) Pulse Ox O2 Delivery O2 Flow Rate FiO2 08/16/20 12:20 95 16 122/80 (94) 100 Room Air 08/16/20 11:32 98.4 EKG: EKG: Sinus rhythm, heart 90 beats minute, normal axis, no ST elevation or depression, no ectopy. [] Radiology/Procedures: Radiology/Procedures: EXAM: Abdomen and pelvis CT with intravenous contrast. HISTORY: Pain. TECHNIQUE: Computed tomographic images of the abdomen and pelvis were obtained f ollowing the administration of intravenous contrast. Multiplanar reformatting was performed. *One or more of the following individualized dose reduction techniques were utilized for this examination: 1. Automated exposure control. 2. Adjustment of the mA and/or kV according to patient size. 3. Use of iterative reconstruction technique. COMPARISON: None. FINDINGS: Evaluation of the lower thorax is unremarkable. There is suspected geographic fatty infiltration of the right hepatic lobe along the falciform ligament. No suspicious hepatic lesion is seen. The gallbladder, pancreas, spleen and adrenal glands are unremarkable. There is mild renal cortical thinning and lobulation. There is no appendicitis. There is no bowel obstruction. The bladder, uterus and adnexal regions are unremarkable. The aorta is normal in caliber. There is no lymphadenopathy. There is no suspicious osseous lesion. IMPRESSION: No acute abdominal or pelvic finding.[] Heart Score: C/O Chest Pain: No Risk Factors: Risk Factors: DM, Current or recent (<one month) smoker, HTN, HLP, family history of CAD, obesity. Risk Scores: Score 0 - 3: 2.5% MACE over next 6 weeks - Discharge Home Score 4 - 6: 20.3% MACE over next 6 weeks - Admit for Clinical Observation Score 7 - 10: 72.7% MACE over next 6 weeks - Early Invasive Strategies Course & Med Decision Making: Course & Med Decision Making Pertinent Labs and Imaging studies reviewed. (See chart for details) Work-up unremarkable, patient has labs consistent with some slight dehydration. Feeling better with pain meds and IV fluids [] Dragon Disclaimer: Mitch Disclaimer: This electronic medical record was generated, in whole or in part, using a voice recognition dictation system. Departure Departure: Impression: Primary Impression: Light-headed feeling Additional Impressions: Abdominal pain Dehydration Disposition: HOME / SELF CARE / HOMELESS Condition: STABLE Referrals: DEANNE MALLORY (PCP) Patient Instructions: Dehydration, Adult Additional Instructions: Follow-up with her primary care provider and take her blood pressure cuff to check readings, hold your hydrochlorothiazide until reevaluated by primary care provider. LESLEY DANIELS MD Aug 16, 2020 13:43
[2020-08-16 13:45] LABS: CREATININE 1.2 mg/dL (0.6-1.0); GFR 57.5; POTASSIUM 4.1 mmol/L (3.5-5.1)
[2020-08-16 13:46] LABS: BASO % 1 % (0-3); EOS # 0.1 x10^3/uL (0.0-0.7); EOS % 1 % (0-3); HEMATOCRIT 37.2 % (36.0-47.0); HEMOGLOBIN 12.1 g/dL (12.0-15.5); LYMPH # 1.5 x10^3/uL (1.0-4.8); LYMPH % 20 % (24-48); MEAN CORPUSCULAR HEMOGLOBIN 26 pg (25-35); MEAN CORPUSCULAR HGB CONC 33 g/dL (31-37); MEAN CORPUSCULAR VOLUME 80 fL (79-100); MONO # 0.8 x10^3/uL (0.0-1.1); MONO % 11 % (0-9); NEUT % 67 % (31-73); PLATELET COUNT 208 x10^3/uL (140-400); RED BLOOD COUNT 4.64 x10^6/uL (3.50-5.40); RED CELL DISTRIBUTION WIDTH 13.5 % (11.5-14.5); WHITE BLOOD COUNT 7.5 x10^3/uL (4.0-11.0)
--- NOTE | 2020-08-16 13:46 | EKG ---
[address] [address] Test Date: 2020-08-16 Test Time: 13:38:54 Pat Name: WILFRED MASTERS Department: Room: Gender: F Staff Research Scientist: FRANCISCA : 1970 Requested By: LESLEY DANIELS Order Number: [id number] Reading MD: Measurements Intervals [place] Rate: 93 P: 53 GA: 166 QRS: 41 QRSD: 88 T: 58 QT: 334 QTc: 418 Interpretive Statements SINUS RHYTHM OTHERWISE NORMAL ECG RI6.02 No previous ECG available for comparison
[2020-08-16 13:57] LABS: ALBUMIN 3.2 g/dL (3.4-5.0); ALBUMIN/GLOBULIN RATIO 0.8 (1.0-1.7); MAGNESIUM 2.1 mg/dL (1.8-2.4); PHOSPHORUS 4.2 mg/dL (2.6-4.7); TOTAL BILIRUBIN 0.2 mg/dL (0.2-1.0); TOTAL PROTEIN 7.1 g/dL (6.4-8.2)
[2020-08-16] MEDS ORDERED: IOHEXOL 300 MG/ML 75 ML VIAL. IV ONE (14:00)
--- NOTE | 2020-08-16 14:15 | RAD ---
EXAM: Abdomen and pelvis CT with intravenous contrast. HISTORY: Pain. TECHNIQUE: Computed tomographic images of the abdomen and pelvis were obtained following the administ ration of intravenous contrast. Multiplanar reformatting was performed. *One or more of the following individualized dose reduction techniques were utilized for this examina tion: 1. Automated exposure control. 2. Adjustment of the mA and/or kV according to patient size. 3. Use of iterative reconstruction technique. COMPARISON: None. FINDINGS: Evaluation of the lower thorax is unremarkable. There is suspected geographic fatty infiltr ation of the right hepatic lobe along the falciform ligament. No suspicious hepatic lesion is seen. T he gallbladder, pancreas, spleen and adrenal glands are unremarkable. There is mild renal cortical th inning and lobulation. There is no appendicitis. There is no bowel obstruction. The bladder, uterus a nd adnexal regions are unremarkable. The aorta is normal in caliber. There is no lymphadenopathy. The re is no suspicious osseous lesion. IMPRESSION: No acute abdominal or pelvic finding. Electronically signed by: Olamide Jefferson MD (08/16/2020 2:13 PM) [id number]
[2020-08-16] MEDS ORDERED: IV NORMAL SALINE 1,000ML 1,000 ML IV ONE (14:30)
[2020-08-16 15:45] VITALS: BP 144/88
== END 2020-08-16 15:47 | disposition home or self-care (01) ==
LOC: ER 11:23
DX: E86.0 Dehydration (principal); R42 Dizziness and giddiness; R10.9 Unspecified abdominal pain; E11.40 Type 2 diabetes mellitus with diabetic neuropathy, unspecified; M79.7 Fibromyalgia; E78.00 Pure hypercholesterolemia, unspecified; I10 Essential (primary) hypertension; F17.210 Nicotine dependence, cigarettes, uncomplicated; Z98.51 Tubal ligation status; Z91.041 Radiographic dye allergy status; Z88.8 Allergy status to other drugs, medicaments and biological substances
CPT/HCPCS: 36415; 74177; 80053; 81001; 83605; 83735; 83880; 84100; 84484; 85025; 93005; 96361; 96374; 99285; J3010; J7030

== ENCOUNTER 2021-01-20 23:44 | Emergency (ER) | payer OTHER ==
[~2021-01-20] VITALS: Ht 167.6 cm; Wt 78.0 kg
[~2021-01-20 23:44] MED LIST changes: -OMEP40CA45 PO; +OMEP40CA7 PO
[2021-01-21] MEDS ORDERED: FAMOTIDINE 20 MG/2 ML VIAL IVP ONE (00:15)
[2021-01-21] MEDS ORDERED: ONDANSETRON PF 4 MG/2 ML VIAL. IVP ONE (00:15)
[2021-01-21 00:38] LABS: BASO % 1 % (0-3); EOS # 0.1 x10^3/uL (0.0-0.7); EOS % 1 % (0-3); HEMATOCRIT 39.7 % (36.0-47.0); LYMPH # 2.2 x10^3/uL (1.0-4.8); LYMPH % 29 % (24-48); MEAN CORPUSCULAR HEMOGLOBIN 26 pg (25-35); MEAN CORPUSCULAR HGB CONC 33 g/dL (31-37); MEAN CORPUSCULAR VOLUME 81 fL (79-100); MONO # 0.7 x10^3/uL (0.0-1.1); MONO % 10 % (0-9); NEUT # 4.7 x10^3uL (1.8-7.7); NEUT % 60 % (31-73); PLATELET COUNT 242 x10^3/uL (140-400); RED BLOOD COUNT 4.92 x10^6/uL (3.50-5.40); WHITE BLOOD COUNT 7.8 x10^3/uL (4.0-11.0)
[2021-01-21] MEDS ORDERED: LIDO:MAALOX 1:1 20 ML SINGLE DOSE. PO ONE (00:45)
--- NOTE | 2021-01-21 00:50 | EKG ---
[address] [address] Test Date: 2021-01-20 Test Time: 23:51:44 Pat Name: WILFRED MASTERS Department: Room: Gender: F Writing Manager: : 1970 Requested By: AGA CHAPARRO Order Number: [id number] Reading MD: Tyson Orta Measurements Intervals [place] Rate: 90 P: 53 MO: 166 QRS: 26 QRSD: 86 T: 54 QT: 368 QTc: 454 Interpretive Statements SINUS RHYTHM NORMAL ECG Electronically Signed On 01-21-2021 13:30:33 CDT by Tyson Orta
--- NOTE | 2021-01-21 00:52 | PHYS DOC ---
Past History Past Medical History: Diabetes, Fibromyalgia, High Cholesterol, Hypertension, Kidney Infection Additional Past Medical Histor: neuropathy Past Surgical History: Tubal ligation Additional Past Surgical Histo: leg surgery Smoking: Cigarettes Additional Smoking Information: occ. cigar Alcohol Use: None Drug Use: Marijuana Adult General Chief Complaint Chief Complaint: CHEST PAIN HPI HPI Patient is a 50 year old female who presents with chest pain located in the epigastric area. The pain has no radiation and the intensity is mild with one single episode of moderate pain at the onset while sitting on sofa at home prior to arrival. Denies any nausea or vomiting. She does have history of gastroesophageal reflux and approximately week ago was changed to new PPI medication but still continues to have some amount of reflux. She denies any shortness of breath or cough. She denies any fever or lower abdominal pain. She denies any nausea vomiting or diarrhea. Denies any dysuria. Review of Systems Review of Systems Constitutional: Denies fever or chills Eyes: Denies change in visual acuity, redness, or eye pain HENT: Denies nasal congestion or sore throat Respiratory: Denies cough or shortness of breath Cardiovascular: No additional information not addressed in HPI GI: Denies abdominal pain, nausea, vomiting, bloody stools or diarrhea : Denies dysuria or hematuria Musculoskeletal: Denies back pain or joint pain Integument: Denies rash or skin lesions Neurologic: Denies headache, focal weakness or sensory changes Endocrine: Denies polyuria or polydipsia All other systems were reviewed and found to be within normal limits, except as documented in this note. Current Medications Current Medications Current Medications Medications (Trade) Dose Ordered Sig/[facility] Start Time Stop Time Status Last Admin Dose Admin Famotidine (Pepcid Vial) 20 mg 1X ONCE 01/21/21 00:15 01/21/21 00:16 DC 01/21/21 00:28 20 MG Multi-Ingredient Mouthwash/Gargle (Gi Cocktail) 20 ml 1X ONCE 01/21/21 00:45 01/21/21 00:46 DC Ondansetron HCl (Zofran) 4 mg 1X ONCE 01/21/21 00:15 01/21/21 00:16 DC 01/21/21 00:28 4 MG Allergies Allergies Allergies Coded Allergies Type Severity Reaction Last Updated Verified I S O L A T I O N *CONTACT* Allergy Unknown 01/20/21 Yes metformin Allergy Unknown 01/20/21 Yes Physical Exam Physical Exam Constitutional: Well developed, well nourished, no acute distress, non-toxic appearance. HENT: Normocephalic, atraumatic, bilateral external ears normal, oropharynx moist, no oral exudates, nose normal. Eyes: PERRLA, EOMI, conjunctiva normal, no discharge. Neck: Normal range of motion, no tenderness, supple, no stridor. Cardiovascular:Heart rate regular rhythm, no murmur Lungs & Thorax: Bilateral breath sounds clear to auscultation Abdomen: Bowel sounds normal, soft, only minimal discomfort in the epigastric area, no masses, no pulsatile masses. Skin: Warm, dry, no erythema, no rash. Back: No tenderness, no CVA tenderness. Extremities: No tenderness, no cyanosis, no clubbing, ROM intact, no edema. Neurologic: Alert and oriented X 3, normal motor function, normal sensory function, no focal deficits noted. Psychologic: Affect normal, judgement normal, mood normal. Current Patient Data Vital Signs Vital Signs Date Time Temp Pulse Resp B/P (MAP) Pulse Ox O2 Delivery O2 Flow Rate FiO2 01/20/21 23:54 94 18 137/81 (99) 100 Lab Results Laboratory Tests Test 01/21/21 00:05 01/21/21 01:03 White Blood Count 7.8 x10^3/uL Red Blood Count 4.92 x10^6/uL Hemoglobin 13.0 g/dL Hematocrit 39.7 % Mean Corpuscular Volume 81 fL Mean Corpuscular Hemoglobin 26 pg Mean Corpuscular Hemoglobin Concent 33 g/dL Red Cell Distribution Width 14.0 % Platelet Count 242 x10^3/uL Neutrophils (%) (Auto) 60 % Lymphocytes (%) (Auto) 29 % Monocytes (%) (Auto) 10 % Eosinophils (%) (Auto) 1 % Basophils (%) (Auto) 1 % Neutrophils # (Auto) 4.7 x10^3uL Lymphocytes # (Auto) 2.2 x10^3/uL Monocytes # (Auto) 0.7 x10^3/uL Eosinophils # (Auto) 0.1 x10^3/uL Basophils # (Auto) 0.0 x10^3/uL Troponin I Quantitative < 0.017 ng/mL Sodium Level 137 mmol/L Potassium Level 4.3 mmol/L Chloride Level 101 mmol/L Carbon Dioxide Level 29 mmol/L Anion Gap 7 Blood Urea Nitrogen 21 mg/dL Creatinine 0.9 mg/dL Estimated GFR (Cockcroft-Gault) 79.9 BUN/Creatinine Ratio 23 Glucose Level 107 mg/dL Calcium Level 9.1 mg/dL Total Bilirubin 0.4 mg/dL Aspartate Amino Transf (AST/SGOT) 31 U/L Alanine Aminotransferase (ALT/SGPT) 41 U/L Alkaline Phosphatase 96 U/L Total Protein 7.5 g/dL Albumin 3.0 g/dL Albumin/Globulin Ratio 0.7 Current Medications Medications (Trade) Dose Ordered Sig/Stephanie Route PRN Reason Start Time Stop Time Status Last Admin Dose Admin Ondansetron HCl (Zofran) 4 mg 1X ONCE IVP 01/21/21 00:15 01/21/21 00:16 DC 01/21/21 00:28 Famotidine (Pepcid Vial) 20 mg 1X ONCE IVP 01/21/21 00:15 01/21/21 00:16 DC 01/21/21 00:28 Multi-Ingredient Mouthwash/Gargle (Gi Cocktail) 20 ml 1X ONCE PO 01/21/21 00:45 01/21/21 00:46 DC 01/21/21 01:37 EKG EKG Twelve-lead EKG is interpreted by me shows normal sinus rhythm at rate of 90 bpm without any acute ST segment elevations or depression or signs of ischemia or arrhythmia. [] Radiology/Procedures Radiology/Procedures Ultrasound of the abdomen done which per radiology interpretation shows no significant abnormalities other than mild hepatic steatosis. Heart Score C/O Chest Pain: Yes HEART Score for Chest Pain: HEART Score for Chest Pain Response (Comments) Value History Slighlty/Non-Suspicious 0 ECG Normal 0 Age >45 - < 65 1 Risk Factors >3 Risk Factors or Hx CAD 2 Total 3 Risk Factors: Risk Factors: DM, Current or recent (<one month) smoker, HTN, HLP Course & Med Decision Making Course & Med Decision Making Pertinent Labs and Imaging studies reviewed. (See chart for details) Patient had improvement in the emergency department after getting famotidine and GI cocktail. Her laboratory studies including CBC and CMP as well as troponin were unremarkable. Her twelve-lead EKG is normal. An ultrasound of the abdomen to evaluate for gallbladder disease was done which per radiology interpretation is without any acute abnormalities. I reexamined patient at 2 AM, she is significantly improved and request discharge home. Instructed her to follow-up with her doctor and potentially discuss choice of PPI or additional medications. In view of normal EKG, normal troponin and chest pain which does not sound to be high in cardiac suspicion, she can be safely discharged home. Dragon Disclaimer Dragon Disclaimer This electronic medical record was generated, in whole or in part, using a voice recognition dictation system. Departure Departure: Impression: Primary Impression: Chest pain due to GERD Disposition: 01 HOME / SELF CARE / HOMELESS Condition: IMPROVED Referrals: DEANNE MALLORY (PCP) Please see your doctor in the next 2 to 3 days and if you have recurrent chest pain, he should come back to emergency department immediately. Patient Instructions: Chest Pain (Nonspecific), Gastritis, Adult AGA CHAPARRO MD Jan 21, 2021 00:52
--- NOTE | 2021-01-21 01:32 | RAD ---
Limited abdominal ultrasound dated 01/21/2021. No comparison available. Clinical indication: Epigastric pain. FINDINGS: Liver is of diffuse increased echogenicity, compatible with fatty infiltration. No apparent mass. Int rahepatic and extra hepatic biliary tree normal in caliber. The CBD measures about 4 mm diameter. No filling defect. Gallbladder normal in size and echogenicity. No gallbladder wall thickening or pericholecystic fluid. No gallstones are seen. Right kidney measures 11 cm in length without hydronephrosis. Left kidney was not imaged. Limited visualized portions of pancreas aorta and IVC unremarkable. No significant ascites. IMPRESSION: 1. No acute sonographic abnormality. 2. Mild hepatic steatosis. Electronically signed by: Vineet Gotti MD (01/21/2021 1:30 AM) SUSAN
[2021-01-21 01:34] LABS: CALCIUM 9.1 mg/dL (8.5-10.1); CREATININE 0.9 mg/dL (0.6-1.0); GFR 79.9
[2021-01-21 01:41] LABS: ALBUMIN/GLOBULIN RATIO 0.7 (1.0-1.7); POTASSIUM 4.3 mmol/L (3.5-5.1); TOTAL BILIRUBIN 0.4 mg/dL (0.2-1.0); TOTAL PROTEIN 7.5 g/dL (6.4-8.2)
[2021-01-21 01:55] VITALS: BP 135/77
== END 2021-01-21 02:06 | disposition home or self-care (01) ==
LOC: ER 23:44
DX: K21.9 Gastro-esophageal reflux disease without esophagitis (principal); R07.89 Other chest pain; M79.7 Fibromyalgia; E78.00 Pure hypercholesterolemia, unspecified; I10 Essential (primary) hypertension; E11.40 Type 2 diabetes mellitus with diabetic neuropathy, unspecified; F17.210 Nicotine dependence, cigarettes, uncomplicated; Z88.8 Allergy status to other drugs, medicaments and biological substances
CPT/HCPCS: 36415; 76705; 80053; 84484; 85025; 93005; 96374; 96375; 99285; J2405; J3490

== ENCOUNTER 2021-01-28 20:06 | Emergency (ER) | payer OTHER ==
[~2021-01-28] VITALS: Ht 167.6 cm; Wt 78.0 kg
[~2021-01-28 20:06] MED LIST changes: +CLIN-95 PO; -CLIN300C9 PO; -DULO60CA6 PO; +DULO60CA7 PO
[2021-01-28] MEDS ORDERED: ONDANSETRON PF 4 MG/2 ML VIAL. IVP ONE (20:45)
[2021-01-28] MEDS ORDERED: IV NORMAL SALINE 1,000ML 1,000 ML IV ONE (20:45)
[2021-01-28] MEDS ORDERED: FAMOTIDINE 20 MG/2 ML VIAL IVP ONE (20:45)
[2021-01-28] MEDS ORDERED: KETOROLAC 15 MG/ML VIAL. IVP ONE (20:45)
[2021-01-28 20:46] VITALS: BP 135/77
--- NOTE | 2021-01-28 20:57 | PHYS DOC ---
Past History Past Medical History: Diabetes, Fibromyalgia, High Cholesterol, Hypertension, Kidney Infection Additional Past Medical Histor: neuropathy Past Surgical History: Tubal ligation Additional Past Surgical Histo: leg surgery Smoking: Cigarettes Alcohol Use: None Drug Use: Marijuana General Adult EDM: Chief Complaint: NAUSEA/VOMITING/DIARRHEA HPI: HPI: Patient is a [age] year old [sex] who presents with [] Review of Systems: Review of Systems: Constitutional: Denies fever or chills Eyes: Denies redness or eye pain HENT: Denies nasal congestion or sore throat Respiratory: Denies cough or shortness of breath Cardiovascular: Denies chest pain or palpitations GI: Denies abdominal pain, nausea, or vomiting : Denies dysuria or hematuria Musculoskeletal: Denies back pain or joint pain Integument: Denies rash or skin lesions Neurologic: Denies headache, focal weakness or sensory changes Complete systems were reviewed and found to be within normal limits, except as documented in this note. Current Medications: Current Meds: Current Medications Medications (Trade) Dose Ordered Sig/[facility] Start Time Stop Time Status Last Admin Dose Admin Famotidine (Pepcid Vial) 20 mg 1X ONCE 01/28/21 20:45 01/28/21 20:47 DC Ketorolac Tromethamine (Toradol 15mg Vial) 15 mg 1X ONCE 01/28/21 20:45 01/28/21 20:47 DC Ondansetron HCl (Zofran) 4 mg 1X ONCE 01/28/21 20:45 01/28/21 20:47 DC Sodium Chloride 1,000 ml @ 1,000 mls/hr 1X ONCE 01/28/21 20:45 01/28/21 21:44 Allergies: Allergies: Allergies Coded Allergies Type Severity Reaction Last Updated Verified I S O L A T I O N *CONTACT* Allergy Unknown 01/20/21 Yes metformin Allergy Unknown 01/20/21 Yes Physical Exam: PE: Constitutional: Well developed, well nourished, no acute distress, non-toxic appearance HENT: Normocephalic, atraumatic Eyes: PERRL, EOMI, conjunctiva normal, no discharge Neck: Normal range of motion, no tenderness, supple Lungs & Thorax: No respiratory distress, equal chest rise and fall Abdomen: Soft, no tenderness Skin: Warm, dry, no erythema, no rash Back: No tenderness, no CVA tenderness Extremities: No tenderness, ROM intact, no edema Neurologic: Alert and oriented X 3, normal motor function, normal sensory function, no focal deficits noted Psychologic: Affect normal, judgment normal Current Patient Data: Vital Signs: Vital Signs Date Time Temp Pulse Resp B/P (MAP) Pulse Ox O2 Delivery O2 Flow Rate FiO2 01/28/21 20:46 97.9 97 18 135/77 (96) 95 EKG: EKG: @2039 NSR at 97bpm, NO ST elevation, QRS 88ms, QT/QTc 340/436ms., low limb lead voltage Radiology/Procedures: Radiology/Procedures: [] Heart Score: C/O Chest Pain: N/A Course & Med Decision Making: Course & Med Decision Making Pertinent Labs and Imaging studies reviewed. (See chart for details) [] Dragon Disclaimer: Dragon Disclaimer: This electronic medical record was generated, in whole or in part, using a voice recognition dictation system. Departure Departure: Impression: Primary Impression: Nausea vomiting and diarrhea Additional Impression: Suspected 2019 novel coronavirus infection Disposition: HOME / SELF CARE / HOMELESS Condition: STABLE Referrals: DEANNE MALLORY (PCP) DAPHNE OATES MD Patient Instructions: Clear Liquid Diet, [id number], Diarrhea, [id number], Diet for Diarrhea, Adult, Nausea and Vomiting, [id number] Additional Instructions: You have been tested for or diagnosed with COVID-19. It is an infection caused by a new type of coronavirus. COVID-19 will cause cold-like or mild flu symptoms in most. It can cause more severe symptoms like problems breathing in some. There is no treatment for COVID-19. The body will clear the infection over time. Self-care will help to ease discomfort. Steps to Take: Self-Care Rest as needed. Healthy habits may help you feel better. Steps include: Choose healthy foods including fruits and vegetables. Drink water throughout the day. Get plenty of sleep each night. If you smoke, try to quit. It may ease breathing. Avoid alcohol. Keep Others Healthy The virus can spread to others. Droplets are released every time you sneeze or cough. The droplets can get into the mouth, nose, or eyes of people near you and lead to infection. To lower the chances of spreading COVID-19 to others: Stay at home until your doctor has said it is safe to leave. If you tested positive this will mean staying isolated until both of the following are true: At least 7 days have passed since the start of illness. You are free of fever for at least 72 hours without the use of medicine. During this time: - Avoid public areas, events, or transportation. Do not return to work or school until your doctor has said it is safe to do so. - Call ahead if you need to go to a medical center. Let them know you may have COVID-19. It will help them guide you where to go. They may also ask you to wear a facemask when you come to the office. - If you call for emergency medical services, let them know you may have COVID- 19. While at home: - Try to avoid close contact with others. Stay about 6 feet away. - If possible, spend most of your time in a separate room from others. - Use a face mask if you will be in close contact with others such as sharing a room or vehicle. - Have someone wipe down common surfaces in the home. Use household political scientist every day on areas like doorknobs, counters, or sinks. - Cough or sneeze into a tissue. Throw the tissue away right after use. If a tissue is not available, cough or sneeze into your elbow. - Wash your hands often. Wash them after sneezing or coughing. Use soap and water and wash for at least 20 seconds. Alcohol based hand boat cleaner can be used if soap and water is not available. - Do not prepare food for others. Avoid sharing personal items like forks, spoons, or toothbrushes. - Avoid close contact with pets while you are sick. There is no evidence of the virus passing to pets. This is a safety step until more is known about this virus. Isolation can be frustrating. Social interaction can help. Keep in touch with friends and family through phone and tech options. You can still interact with others in your home, just keep a safe distance of about 6 feet. Follow-up: Your doctors office will check in with you to see if there are any changes in your health. You may be asked to keep track of symptoms to share with them. They will also let you know when you are clear to be in public again. Problems to Look Out For: Contact your doctor if your recovery is not going as you expect. Get emergency care if you have problems such as: - Trouble breathing - Nonstop chest pain or pressure - Changes in awareness, confusion, or problems waking - Lips or face have bluish color - Worsening of symptoms If you think you have an emergency, call for emergency medical services right away. As taken from [facility] Hyoscyamine Sulfate (LEVSIN-SL) 0.125 Mg Tab.subl 0.125 MG SL Q4-6HRS PRN for PAIN, #14 TAB Prov: RAQUEL STAFFORD DO 01/28/21 Famotidine (PEPCID) 20 Mg Tablet 1 TAB PO BID for Gastritis, #20 TAB Prov: RAQUEL STAFFORD DO 01/28/21 Ondansetron (ONDANSETRON ODT) 4 Mg Tab.rapdis 1 TAB PO PRN Q6-8HRS PRN for NAUSEA, #16 TAB Prov: RAQUEL STAFFORD DO 01/28/21 RAQUEL STAFFORD DO Jan 28, 2021 20:57
[2021-01-28 21:16] LABS: BASO % 0 % (0-3); EOS # 0.1 x10^3/uL (0.0-0.7); EOS % 1 % (0-3); HEMATOCRIT 38.5 % (36.0-47.0); HEMOGLOBIN 12.8 g/dL (12.0-15.5); LYMPH % 23 % (24-48); MEAN CORPUSCULAR HEMOGLOBIN 26 pg (25-35); MEAN CORPUSCULAR HGB CONC 33 g/dL (31-37); MEAN CORPUSCULAR VOLUME 80 fL (79-100); MONO # 0.9 x10^3/uL (0.0-1.1); MONO % 10 % (0-9); NEUT # 5.8 x10^3uL (1.8-7.7); NEUT % 66 % (31-73); PLATELET COUNT 249 x10^3/uL (140-400); RED BLOOD COUNT 4.83 x10^6/uL (3.50-5.40); RED CELL DISTRIBUTION WIDTH 14.3 % (11.5-14.5); WHITE BLOOD COUNT 8.8 x10^3/uL (4.0-11.0)
[2021-01-28 21:17] LABS: CALCIUM 9.7 mg/dL (8.5-10.1); CREATININE 1.2 mg/dL (0.6-1.0); GFR 57.3; POTASSIUM 4.7 mmol/L (3.5-5.1)
--- NOTE | 2021-01-28 21:27 | EKG ---
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
[2021-01-28 21:33] LABS: ALBUMIN 3.5 g/dL (3.4-5.0); ALBUMIN/GLOBULIN RATIO 0.8 (1.0-1.7); MAGNESIUM 2.6 mg/dL (1.8-2.4); TOTAL BILIRUBIN 0.2 mg/dL (0.2-1.0)
[2021-01-28 21:36] LABS: BILIRUBIN,URINE NEG (NEG); CLARITY,URINE HAZY; COLOR,URINE YELLOW; GLUCOSE,URINE >=1000 mg/dL (NEG); NITRITE,URINE NEG (NEG); UROBILINOGEN,URINE 0.2 mg/dL (0.2 mg/dL); WBC,URINE 0 /HPF (0-4)
[2021-01-28 21:37] LABS: BACTERIA,URINE FEW /HPF (0-FEW); SQUAMOUS EPITHELIAL CELL,UR MOD /LPF
[2021-01-28] MEDS ORDERED: HYOS0.1265 SL (22:33)
[2021-01-28] MEDS ORDERED: FAMO-63 PO (22:33)
[2021-01-28] MEDS ORDERED: ONDA4TAB12 PO (22:33)
== END 2021-01-28 22:43 | disposition home or self-care (01) ==
LOC: ER 20:06
DX: R11.2 Nausea with vomiting, unspecified (principal); R19.7 Diarrhea, unspecified; M79.7 Fibromyalgia; E78.00 Pure hypercholesterolemia, unspecified; I10 Essential (primary) hypertension; E11.40 Type 2 diabetes mellitus with diabetic neuropathy, unspecified; Z20.822 Contact with and (suspected) exposure to COVID-19; Z88.8 Allergy status to other drugs, medicaments and biological substances
CPT/HCPCS: 36415; 80053; 81001; 82553; 83690; 83735; 84484; 85025; 93005; 96361; 96374; 96375; 99284; C9803; J1885; J2405; J3490; J7030; U0003

== ENCOUNTER 2021-04-23 01:19 | Emergency (ER) | payer OTHER ==
[~2021-04-23] VITALS: Ht 167.6 cm; Wt 90.0 kg
[~2021-04-23 01:19] MED LIST changes: -CYCL-331 PO; +CYCL10TA19 PO; +FAMO-63 PO; +HYOS0.1265 SL; +MORP-62 PO; -MORP15TA PO; +ONDA4TAB12 PO
[2021-04-23] MEDS ORDERED: IV NORMAL SALINE 1,000ML 1,000 ML IV ONE (02:00)
[2021-04-23 02:13] VITALS: BP 136/98
--- NOTE | 2021-04-23 02:16 | PHYS DOC ---
Past History Past Medical History: Diabetes, Fibromyalgia, High Cholesterol, Hypertension, Kidney Infection Additional Past Medical Histor: neuropathy Past Surgical History: Tubal ligation Additional Past Surgical Histo: leg surgery Smoking: Cigarettes Alcohol Use: None Drug Use: Marijuana General Adult EDM: Chief Complaint: DIZZY/LIGHT HEADED HPI: HPI: 50-year-old female presents with dizziness. Patient states that she was sitting on the toilet urinating and defecating when she felt dizzy. This concerned her so she decided come the emergency room. Patient was feeling fine prior to this. She is very sleepy right now. She states that she feels better at this time. She has had this before with changes in her blood pressure. She states her blood pressure was nineties over fifties earlier today. On arrival to the emergency room it was within normal limits. Patient denies fever or chills. She has no other complaints at this time. Review of Systems: Review of Systems: Constitutional: Denies fever or chills Eyes: Denies change in visual acuity HENT: Denies nasal congestion or sore throat Respiratory: Denies cough or shortness of breath Cardiovascular: Denies chest pain or edema GI: Denies abdominal pain, nausea, vomiting, bloody stools or diarrhea : Denies dysuria Musculoskeletal: Denies back pain or joint pain Integument: Denies rash Neurologic: Dizziness. Denies headache, focal weakness or sensory changes Endocrine: Denies polyuria or polydipsia Lymphatic: Denies swollen glands Psychiatric: Denies depression or anxiety Current Medications: Current Meds: Current Medications Medications (Trade) Dose Ordered Sig/[facility]ie Start Time Stop Time Status Last Admin Dose Admin Sodium Chloride 1,000 ml @ 1,000 mls/hr 1X ONCE 04/23/21 02:00 04/23/21 02:59 04/23/21 02:00 1,000 MLS/HR Allergies: Allergies: Allergies Coded Allergies Type Severity Reaction Last Updated Verified I S O L A T I O N *CONTACT* Allergy Unknown 01/20/21 Yes metformin Allergy Unknown 01/20/21 Yes Physical Exam: PE: Constitutional: Well developed, well nourished, obese, no acute distress, non- toxic appearance. [] HENT: Normocephalic, atraumatic, bilateral external ears normal, oropharynx moist, no oral exudates, nose normal. [] Eyes: PERRLA, EOMI, conjunctiva normal, no discharge. [] Neck: Normal range of motion, no tenderness, supple, no stridor. [] Cardiovascular: Heart rate regular rhythm, no murmur [] Lungs & Thorax: Bilateral breath sounds clear to auscultation [] Abdomen: Bowel sounds normal, soft, no tenderness, no masses, no pulsatile masses. [] Skin: Warm, dry, no erythema, no rash. [] Back: No tenderness, no CVA tenderness. [] Extremities: No tenderness, no cyanosis, no clubbing, ROM intact, no edema. [] Neurologic: Alert and oriented X 3, normal motor function, normal sensory function, no focal deficits noted. [] Psychologic: Affect normal, judgement normal, mood normal. [] Current Patient Data: Vital Signs: Vital Signs Date Time Temp Pulse Resp B/P (MAP) Pulse Ox O2 Delivery O2 Flow Rate FiO2 04/23/21 01:21 97.9 98 16 120/64 (82) 100 Room Air EKG: EKG: Sinus rhythm, rate 101, normal axis, no ST elevation or depression. [] Radiology/Procedures: Radiology/Procedures: [] Heart Score: C/O Chest Pain: N/A Risk Factors: Risk Factors: DM, Current or recent (<one month) smoker, HTN, HLP, family history of CAD, obesity. Risk Scores: Score 0 - 3: 2.5% MACE over next 6 weeks - Discharge Home Score 4 - 6: 20.3% MACE over next 6 weeks - Admit for Clinical Observation Score 7 - 10: 72.7% MACE over next 6 weeks - Early Invasive Strategies Course & Med Decision Making: Course & Med Decision Making Pertinent Labs and Imaging studies reviewed. (See chart for details) The patient is sleepy but easily arousable. She tells me that her symptoms are gone and she is not worried about it anymore. Her EKG is unremarkable. Her labs are similar to previous with no obvious cause for her symptoms. She is stable for discharge at this time. [] Dragon Disclaimer: Dragon Disclaimer: This electronic medical record was generated, in whole or in part, using a voice recognition dictation system. Departure Departure: Impression: Primary Impression: Dizziness Disposition: HOME / SELF CARE / HOMELESS Condition: STABLE Referrals: DEANNE MALLORY (PCP) Patient Instructions: Dizziness, [id number] MICHAEL HENRIQUEZ DO Apr 23, 2021 02:16
[2021-04-23 02:22] LABS: BASO % 0 % (0-3); EOS # 0.1 x10^3/uL (0.0-0.7); EOS % 1 % (0-3); HEMATOCRIT 34.6 % (36.0-47.0); HEMOGLOBIN 11.3 g/dL (12.0-15.5); LYMPH # 1.8 x10^3/uL (1.0-4.8); LYMPH % 20 % (24-48); MEAN CORPUSCULAR HEMOGLOBIN 26 pg (25-35); MEAN CORPUSCULAR HGB CONC 33 g/dL (31-37); MEAN CORPUSCULAR VOLUME 78 fL (79-100); MONO % 11 % (0-9); NEUT # 5.8 x10^3uL (1.8-7.7); NEUT % 67 % (31-73); PLATELET COUNT 240 x10^3/uL (140-400); RED BLOOD COUNT 4.41 x10^6/uL (3.50-5.40); WHITE BLOOD COUNT 8.7 x10^3/uL (4.0-11.0)
[2021-04-23 02:35] LABS: CALCIUM 9.2 mg/dL (8.5-10.1); CREATININE 1.5 mg/dL (0.6-1.0); GFR 44.3; POTASSIUM 4.3 mmol/L (3.5-5.1)
[2021-04-23 02:40] LABS: ALBUMIN 3.6 g/dL (3.4-5.0); ALBUMIN/GLOBULIN RATIO 0.9 (1.0-1.7); TOTAL BILIRUBIN 0.3 mg/dL (0.2-1.0); TOTAL PROTEIN 7.7 g/dL (6.4-8.2)
== END 2021-04-23 03:02 | disposition home or self-care (01) ==
LOC: ER 01:19
DX: R42 Dizziness and giddiness (principal); E11.9 Type 2 diabetes mellitus without complications; M79.7 Fibromyalgia; E78.00 Pure hypercholesterolemia, unspecified; I10 Essential (primary) hypertension; F17.210 Nicotine dependence, cigarettes, uncomplicated; Z91.041 Radiographic dye allergy status; Z88.8 Allergy status to other drugs, medicaments and biological substances
CPT/HCPCS: 36415; 80053; 84484; 85025; 93005; 96360; 99284; J7030

== ENCOUNTER 2021-06-20 03:10 | Emergency (ER) | payer OTHER ==
[~2021-06-20] VITALS: Ht 167.6 cm; Wt 94.0 kg
--- NOTE | 2021-06-20 03:25 | PHYS DOC ---
Past History Past Medical History: Anxiety, Bronchitis, Diabetes, Fibromyalgia, High Cholesterol, Hypertension, Kidney Infection Additional Past Medical Histor: neuropathy (RASHI CHATMAN MD) Past Surgical History: Tubal ligation Additional Past Surgical Histo: leg surgery (RASHI CHATMAN MD) Smoking: Cigarettes Alcohol Use: None Drug Use: Marijuana (RASHI CHATMAN MD) General Adult EDM: Chief Complaint: ANXIETY/PANIC ATTACK HPI: HPI: ".. I am very anxious... woke up with shortness of breath.." Patient is a 50 year old female who presents with above hx and complaints of anxiety and dyspnea. Patient currently hyperventilating. Patient denies any recent changes in meds of the then a reduction in her Seroquel. Patient denies any travel. Patient denies any specific ill contacts. Patient denies any trauma. Patient states she has been compliant with her diabetes and fibromyalgia meds. Patient has significant past medical history of diabetes, fibromyalgia, elevated cholesterol, hypertension, urinary tract infections, pyelonephritis, peripheral neuropathy, and panic disorder. Patient does continue to smoke both cigarettes and marijuana.. Patient has had previous tubal ligation, leg surgery, pt. follows with Dr. Mallory . (RASHI CHATMAN MD) Review of Systems: Review of Systems: Constitutional: Denies fever or chills Eyes: Denies change in visual acuity HENT: Denies nasal congestion or sore throat Respiratory: Denies cough or shortness of breath Cardiovascular: Denies chest pain or edema GI: Denies abdominal pain, nausea, vomiting, bloody stools or diarrhea : Denies dysuria Musculoskeletal: Denies back pain or joint pain Integument: Denies rash Neurologic: Denies headache, focal weakness or sensory changes Endocrine: Denies polyuria or polydipsia Lymphatic: Denies swollen glands Psychiatric: Denies depression or anxiety (RASHI CHATMAN MD) Family History: Family History: Noncontributory to presentation. (RASHI CHATMAN MD) Current Medications: Current Meds: See nursing for home meds (RASHI CHATMAN MD) Allergies: Allergies: Allergies Coded Allergies Type Severity Reaction Last Updated Verified I S O L A T I O N *CONTACT* Allergy Unknown 06/20/21 Yes metformin Allergy Unknown 06/20/21 Yes (RASHI CHATMAN MD) Physical Exam: PE: Constitutional: Moderate acute emotional distress, non-toxic appearance. [] HENT: Normocephalic, atraumatic, bilateral external ears normal, oropharynx moist, no oral exudates, nose normal. Poor dentition Eyes: PERRLA, EOMI, conjunctiva normal, no discharge. [] Neck: Normal range of motion, no tenderness, supple, no stridor. [] Cardiovascular:Heart tachycardia rate regular rhythm, no murmur [] Lungs & Thorax: Bilateral breath sounds equal apex with few scattered wheezes on auscultation [] Abdomen: Bowel sounds normal, soft, no tenderness, no masses, no pulsatile masses. Old surgery scars. Skin: Warm, dry, no erythema, no rash. [] Back: No tenderness, no CVA tenderness. [] Extremities: No tenderness, no cyanosis, no clubbing, ROM intact, no edema. No cording appreciated Neurologic: Alert and oriented X 3, moves all extremities on request, does have distal sensory,, no focal deficits noted. [] Psychologic: Affect very anxious, judgement normal, mood normal. [] (RASHI CHATMAN MD) Current Patient Data: Labs: Laboratory Tests Test 06/20/21 03:17 Glucose (Fingerstick) 302 mg/dL (70-99) H Vital Signs: Vital Signs Date Time Temp Pulse Resp B/P (MAP) Pulse Ox O2 Delivery O2 Flow Rate FiO2 06/20/21 03:18 98.0 109 30 155/112 (126) 100 Room Air (RASHI CHATMAN MD) EKG: EKG: My interpretation EKG shows sinus tachycardia 110 bpm. No acute morphology. No findings of STEMI. Time of EKG is 0326 hrs. [] (RASHI CHATMAN MD) Radiology/Procedures: Radiology/Procedures: [][address] [address] IMAGING REPORT Signed PATIENT: WILFRED MASTERS ACCOUNT: [id number] : 1970 LOCATION: ER AGE: 50 SEX: F EXAM STATUS: REG ER ORD. PHYSICIAN: RASHI CHATMAN MD REASON: dyspnea PROCEDURE: PORTABLE CHEST 1V EXAM: XR CHEST 1V 06/20/2021 3:36 AM CLINICAL INDICATION: Dyspnea COMPARISON: Chest radiograph 05/19/2020 TECHNIQUE: AP upright view of the chest FINDINGS: The heart and mediastinum are normal. Lungs are well-expanded. There are possible vague opacities at the lateral right lung base. No pleural effusion, or pneumothorax. Pulmonary vascularity is normal. The thoracic skeleton is intact. IMPRESSION: Possible vague opacities in the right lung base, developing pneumonia is possible. Electronically signed by: Janice Leger MD (06/20/2021 4:20 AM) [facility] DICTATED AND SIGNED BY: JANICE LEGER MD DATE: 06/20/21418 CC: DEANNE MALLORY; RASHI CHATMAN MD ~MTH0 0 (RASHI CHATMAN MD) Heart Score: C/O Chest Pain: No Risk Factors: Risk Factors: DM, Current or recent (<one month) smoker, HTN, HLP, family history of CAD, obesity. Risk Scores: Score 0 - 3: 2.5% MACE over next 6 weeks - Discharge Home Score 4 - 6: 20.3% MACE over next 6 weeks - Admit for Clinical Observation Score 7 - 10: 72.7% MACE over next 6 weeks - Early Invasive Strategies (RASHI CHATMAN MD) Course & Med Decision Making: Course & Med Decision Making Pertinent Labs and Imaging studies reviewed. (See chart for details) Avoid tobacco. Take Azithromax 250 x 5 days. Follow up with primary. Return if any concerns. Endorsed to Dr. Henriquez at shift change. Impression: 1,. Bronchitis 2. Anxiety and Panic attack 3., Mild Leukocytosis 12.3 4. Elevated Glucose 338- repeat 215 [] (RASHI CHATMAN MD) Course & Med Decision Making The patient appears to have a possible early pneumonia by chest x-ray. She has been treated with first dose of azithromycin in the emergency room. She has mild elevated white count. Her troponin x2 are negative. Do not see any obvious cardiac cause for her pain. Heart rate is improved within normal limits. Some of the patient's anxiety could also be from her marijuana use which may or may not have additional synthetic drugs in it. The patient will be given a prescription for azithromycin. She is stable for discharge at this time. (MICHAEL HENRIQUEZ DO) Dragon Disclaimer: Dragon Disclaimer: This electronic medical record was generated, in whole or in part, using a voice recognition dictation system. (RASHI CHATMAN MD) Departure Departure: Impression: Primary Impression: Pneumonia involving right lung Qualified Codes: J18.9 - Pneumonia, unspecified organism Disposition: HOME / SELF CARE / HOMELESS Condition: STABLE Referrals: DEANNE MALLORY (PCP) Patient Instructions: Pneumonia, Adult, [id number] Scripts Azithromycin (ZITHROMAX) 250 Mg Tablet 250 MG PO DAILY for ANTI-BIOTIC, #5 TAB 0 Refills Prov: RASHI CHATMAN MD 06/20/21 Dragon Disclaimer This chart was dictated in whole or in part using Voice Recognition software in a busy, high-work load, and often noisy Emergency Department environment. It may contain unintended and wholly unrecognized errors or omissions. (RASHI CHATMAN MD) Dragon Disclaimer This chart was dictated in whole or in part using Voice Recognition software in a busy, high-work load, and often noisy Emergency Department environment. It may contain unintended and wholly unrecognized errors or omissions. (RASHI CHATMAN MD) RASHI CHATMAN MD Jun 20, 2021 03:25 MICHAEL HENRIQUEZ DO Jun 20, 2021 07:18
[2021-06-20] MEDS ORDERED: ONDANSETRON ODT 4 MG TAB.RAPDIS PO ONE (03:45)
[2021-06-20] MEDS ORDERED: LORazepam 1 MG TABLET PO ONE (03:45)
[2021-06-20] MEDS ORDERED: IV RINGERS SOLUTION,LACTATED 1,000 ML IV SCH (03:45)
[2021-06-20 04:01] LABS: BASO # 0.1 x10^3/uL (0.0-0.2); BASO % 1 % (0-3); EOS # 0.1 x10^3/uL (0.0-0.7); EOS % 1 % (0-3); HEMATOCRIT 36.9 % (36.0-47.0); HEMOGLOBIN 12.1 g/dL (12.0-15.5); LYMPH % 17 % (24-48); MEAN CORPUSCULAR HEMOGLOBIN 26 pg (25-35); MEAN CORPUSCULAR HGB CONC 33 g/dL (31-37); MEAN CORPUSCULAR VOLUME 78 fL (79-100); MONO # 1.2 x10^3/uL (0.0-1.1); MONO % 9 % (0-9); NEUT # 8.9 x10^3uL (1.8-7.7); NEUT % 73 % (31-73); PLATELET COUNT 264 x10^3/uL (140-400); RED BLOOD COUNT 4.75 x10^6/uL (3.50-5.40); RED CELL DISTRIBUTION WIDTH 14.1 % (11.5-14.5); WHITE BLOOD COUNT 12.3 x10^3/uL (4.0-11.0)
[2021-06-20 04:10] LABS: CREATININE 1.3 mg/dL (0.6-1.0); GFR 52.3; POTASSIUM 4.5 mmol/L (3.5-5.1)
--- NOTE | 2021-06-20 04:22 | RAD ---
EXAM: XR CHEST 1V 06/20/2021 3:36 AM CLINICAL INDICATION: Dyspnea COMPARISON: Chest radiograph 05/19/2020 TECHNIQUE: AP upright view of the chest FINDINGS: The heart and mediastinum are normal. Lungs are well-expanded. There are possible vague o pacities at the lateral right lung base. No pleural effusion, or pneumothorax. Pulmonary vascularity is normal. The thoracic skeleton is intact. IMPRESSION: Possible vague opacities in the right lung base, developing pneumonia is possible. Electronically signed by: Janice Leger MD (06/20/2021 4:20 AM) [facility]
[2021-06-20 04:23] LABS: ALBUMIN 3.7 g/dL (3.4-5.0); DIRECT BILIRUBIN 0.1 mg/dL (0.0-0.2); MAGNESIUM 2.2 mg/dL (1.8-2.4); TOTAL BILIRUBIN 0.3 mg/dL (0.2-1.0)
[2021-06-20] MEDS ORDERED: CALCIUM CARBONATE 500 MG TAB.CHEW PO PRN (05:00)
[2021-06-20] MEDS ORDERED: MAGNESIUM HYDROXIDE 2,400 MG/30 ML ORAL.SUSP. PO ONE (05:00)
[2021-06-20] MEDS ORDERED: INSULIN REGULAR 100 UNIT/ML 3ML VIAL. IV ONE (05:00)
--- NOTE | 2021-06-20 05:40 | EKG ---
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
[2021-06-20 05:43] LABS: BARBITURATES NEG (NEG); BENZODIAZEPINES NEG (NEG); CANNABINOIDS POS (NEG); COCAINE NEG (NEG); METHADONE NEG (NEG); OPIATES NEG (NEG); PHENCYCLIDINE NEG (NEG)
[2021-06-20 05:44] LABS: CLARITY,URINE CLEAR; COLOR,URINE YELLOW; GLUCOSE,URINE >=1000 mg/dL (NEG); NITRITE,URINE NEG (NEG); UROBILINOGEN,URINE 0.2 mg/dL (0.2 mg/dL)
[2021-06-20 05:45] LABS: BACTERIA,URINE 0 /HPF (0-FEW); SQUAMOUS EPITHELIAL CELL,UR FEW /LPF; WBC,URINE OCC /HPF (0-4)
[2021-06-20 06:00] LABS: AMPHETAMINE/METHAMPHETAMINE NEG (NEG)
[2021-06-20] MEDS ORDERED: AZIT250T PO (06:04)
[2021-06-20] MEDS ORDERED: AZITHROMYCIN 250 MG TABLET. PO ONE (06:15)
[2021-06-20 07:15] VITALS: BP 142/81
[2021-06-20 08:51] LABS: INFLUENZA A PATIENT NEGATIVE (NEGATIVE); INFLUENZA B PATIENT NEGATIVE (NEGATIVE)
== END 2021-06-20 07:49 | disposition home or self-care (01) ==
LOC: ER 03:10
DX: J18.9 Pneumonia, unspecified organism (principal); J40 Bronchitis, not specified as acute or chronic; F41.9 Anxiety disorder, unspecified; D72.829 Elevated white blood cell count, unspecified; E11.65 Type 2 diabetes mellitus with hyperglycemia; M79.7 Fibromyalgia; E78.00 Pure hypercholesterolemia, unspecified; I10 Essential (primary) hypertension; F17.210 Nicotine dependence, cigarettes, uncomplicated; Z20.822 Contact with and (suspected) exposure to COVID-19; Z88.8 Allergy status to other drugs, medicaments and biological substances
CPT/HCPCS: 36415; 71045; 80048; 80076; 80307; 81001; 82550; 82947; 83690; 83735; 83880; 84443; 84484; 85025; 85379; 85610; 87428; 93005; 96361; 96374; 99285; J1815; J7120; Q0162

== ENCOUNTER 2021-07-29 22:28 | Emergency (ER) | payer OTHER ==
[~2021-07-29] VITALS: Ht 167.6 cm; Wt 91.0 kg
[~2021-07-29 22:28] MED LIST changes: +AZIT250T PO
--- NOTE | 2021-07-29 22:50 | PHYS DOC ---
Past History Past Medical History: Anxiety, Bronchitis, Diabetes, Fibromyalgia, High Cholesterol, Hypertension, Kidney Infection Additional Past Medical Histor: neuropathy Past Surgical History: Tubal ligation Additional Past Surgical Histo: leg surgery Smoking: Cigarettes Alcohol Use: None Drug Use: Marijuana General Adult EDM: Chief Complaint: TOE PROBLEM HPI: HPI: ".. I am diabetic. and worried about my toes.. ".. " I do not have great feeling in my toes I get worried when they seem to be swollen and red... Worried about my left first toe and my right second toe.. I do not think I injured them but I just wanted to have him checked tonight..." Patient is a 50 year old female who presents with above hx and complaints bilateral toe pain. Patient denies any trauma. But has noticed that it were little more red and swollen than usual. Patient does have peripheral neuropathy. Has known history of diabetes. Patient does smoke and use marijuana daily. Patient has past medical history of anxiety, bronchitis, diabetes, fibromyalgia, elevated cholesterol, hypertension, kidney infections, peripheral neuropathy, peripheral vascular disease, and arthritis complaints. Follows with Dr. Maldonado. Patient seen in room 3 Review of Systems: Review of Systems: Constitutional: Denies fever or chills Eyes: Denies change in visual acuity HENT: Denies nasal congestion or sore throat Respiratory: Denies cough or shortness of breath Cardiovascular: Denies chest pain or edema GI: Denies abdominal pain, nausea, vomiting, bloody stools or diarrhea : Denies dysuria Musculoskeletal: Worried about her toes Integument: Denies rash Neurologic: Denies headache, focal weakness or sensory changes Endocrine: Denies polyuria or polydipsia Lymphatic: Denies swollen glands Psychiatric: Denies depression or anxiety Family History: Family History: Diabetes hypertension Current Medications: Current Meds: See nursing for home meds Allergies: Allergies: Allergies Coded Allergies Type Severity Reaction Last Updated Verified I S O L A T I O N *CONTACT* Allergy Unknown 06/20/21 Yes metformin Allergy Unknown 06/20/21 Yes Physical Exam: PE: Constitutional: , no acute distress, non-toxic appearance. [] HENT: Normocephalic, atraumatic, bilateral external ears normal, oropharynx moist, no oral exudates, nose normal. [] Eyes: PERRLA, EOMI, conjunctiva normal, no discharge. [] Neck: Normal range of motion, no tenderness, supple, no stridor. [] Cardiovascular:Heart rate regular rhythm, no murmur, PMI to the left Lungs & Thorax: Bilateral breath sounds to apex with scattered wheezes on auscultation [] Abdomen: Bowel sounds normal, soft, no tenderness, no masses, no pulsatile ma sses. [] Skin: Warm, dry, no erythema, no rash. [] Back: No tenderness, no CVA tenderness. [] Extremities: No tenderness, no cyanosis, no clubbing, ROM intact, does have bilateral toe edema. Patient states first toe left more swollen red than usual and right second toe. Does have decreased dorsal pedis and posterior pedis pulses bilaterally Neurologic: Alert and oriented X 3, moves all extremities on request, does have decreased distal plantar sensation function, no focal deficits noted. [] Psychologic: Affect anxious, judgement normal, mood normal. [] EKG: EKG: [] Radiology/Procedures: Radiology/Procedures: [][place] [address] IMAGING REPORT Signed PATIENT: WILFRED MASTERS ACCOUNT: [id number] : 1970 LOCATION: ER AGE: 50 SEX: F EXAM STATUS: REG ER ORD. PHYSICIAN: RASHI CHATMAN MD REASON: Left 1st digit and Right 2nd digit pain, swelling. Hx: Neuropathy PROCEDURE: TOES BILAT EXAM: 3 views right second toe 3 views left hallux DATE: 07/29/2021 10:58 PM INDICATION: Reason: Left 1st digit and Right 2nd digit pain, swelling. Hx: Neuropathy / Spl. Instructions: / History: . COMPARISON: No Prior FINDINGS: Right second toe: Soft tissue swelling about the right second toe. No definite acute fracture or dislocation. If there is persistent clinical concern for fracture, follow-up radiographs in 10-14 days is recommended. Left hallux: Mild soft tissue swelling about the left great toe without acute fracture or dislocation. And definite retained radiopaque foreign body. If there is persistent clinical concern for fracture, follow-up radiographs in 10-14 days is recommended. IMPRESSION: No acute fracture or dislocation of the right second toe left hallux. If there is persistent clinical concern for fracture, follow-up radiographs in 10-14 days is recommended. Associated soft tissue swelling. Electronically signed by: Hugo Knapp MD (07/29/2021 11:19 PM) [facility] DICTATED AND SIGNED BY: HUGO KNAPP MD DATE: 07/29/212315 CC: RASHI CHATMAN MD; JACK ANGULO APRN ~ [place] [address] IMAGING REPORT Signed PATIENT: WILFRED MASTERS ACCOUNT: [id number] : 1970 LOCATION: ER AGE: 50 SEX: F EXAM STATUS: REG ER ORD. PHYSICIAN: RASHI CHATMAN MD REASON: Left 1st digit and Right 2nd digit pain, swelling. Hx: Neuropathy PROCEDURE: TOES BILAT EXAM: 3 views right second toe 3 views left hallux DATE: 07/29/2021 10:58 PM INDICATION: Reason: Left 1st digit and Right 2nd digit pain, swelling. Hx: Neuropathy / Spl. Instructions: / History: . COMPARISON: No Prior FINDINGS: Right second toe: Soft tissue swelling about the right second toe. No definite acute fracture or dislocation. If there is persistent clinical concern for fracture, follow-up radiographs in 10-14 days is recommended. Left hallux: Mild soft tissue swelling about the left great toe without acute fracture or dislocation. And definite retained radiopaque foreign body. If there is persistent clinical concern for fracture, follow-up radiographs in 10-14 days is recommended. IMPRESSION: No acute fracture or dislocation of the right second toe left hallux. If there is persistent clinical concern for fracture, follow-up radiographs in 10-14 days is recommended. Associated soft tissue swelling. Electronically signed by: Hugo Knapp MD (07/29/2021 11:19 PM) [facility] DICTATED AND SIGNED BY: HUGO KNAPP MD DATE: 07/29/212315 CC: RASHI CHATMAN MD; JACK ANGULO APRN ~ Heart Score: C/O Chest Pain: N/A Risk Factors: Risk Factors: DM, Current or recent (<one month) smoker, HTN, HLP, family history of CAD, obesity. Risk Scores: Score 0 - 3: 2.5% MACE over next 6 weeks - Discharge Home Score 4 - 6: 20.3% MACE over next 6 weeks - Admit for Clinical Observation Score 7 - 10: 72.7% MACE over next 6 weeks - Early Invasive Strategies Course & Med Decision Making: Course & Med Decision Making Pertinent Labs and Imaging studies reviewed. (See chart for details) Patient advised no obvious fracture or dislocation. No obvious osteomyelitis on plain films. However with her diabetes and peripheral neuropathy she is high risk of osteomyelitis. Would repeat x-rays in 10 to 14 days. Must follow-up with primary care.. Advised patient must stop smoking. Consider taking a daily baby aspirin. Patient to practice good foot hygiene. Take her diabetic meds as directed. Patient take clindamycin 300 mg 3 times a day for the next 10 days. Patient take Flagyl 500 mg 3 times a day for the next 14 days. Must stop smoking. Impression: 1. Cellulitis-toes 2. Peripheral vascular disease 3. Peripheral neuropathy 4. Tobacco and marijuana use 5. Diabetes [] Dragon Disclaimer: Mitch Disclaimer: This electronic medical record was generated, in whole or in part, using a voice recognition dictation system. Departure Departure: Referrals: JACK ANGULO APRN (PCP) Scripts Metronidazole (FLAGYL) 375 Mg Capsule 500 MG PO TID for cellulitis for 14 Days, #56 CAP Prov: RASHI CHATMAN MD 07/30/21 Clindamycin Hcl (CLINDAMYCIN HCL) 300 Mg Capsule 300 MG PO TID for celliitis for 10 Days, #30 CAP Prov: RASHI CHATMAN MD 07/30/21 Mitch Disclaimer This chart was dictated in whole or in part using Voice Recognition software in a busy, high-work load, and often noisy Emergency Department environment. It may contain unintended and wholly unrecognized errors or omissions. RASHI CHATMAN MD Jul 29, 2021 22:50
--- NOTE | 2021-07-29 23:22 | RAD ---
EXAM: 3 views right second toe 3 views left hallux DATE: 07/29/2021 10:58 PM INDICATION: Reason: Left 1st digit and Right 2nd digit pain, swelling. Hx: Neuropathy / Spl. Instruct ions: / History: . COMPARISON: No Prior FINDINGS: Right second toe: Soft tissue swelling about the right second toe. No definite acute fracture or dislocation. If there is persistent clinical concern for fracture, follow-up radiographs in 10-14 days is recommended. Left hallux: Mild soft tissue swelling about the left great toe without acute fracture or dislocation. And definit e retained radiopaque foreign body. If there is persistent clinical concern for fracture, follow-up r adiographs in 10-14 days is recommended. IMPRESSION: No acute fracture or dislocation of the right second toe left hallux. If there is persistent clinical concern for fracture, follow-up radiographs in 10-14 days is recommended. Associated soft tissue swelling. Electronically signed by: Hugo Shafer MD (07/29/2021 11:19 PM) [facility]
[2021-07-30] MEDS ORDERED: METR375C PO (01:11)
[2021-07-30] MEDS ORDERED: CLIN-95 PO (01:11)
[2021-07-30] MEDS ORDERED: ONDANSETRON ODT 4 MG TAB.RAPDIS PO ONE (01:30)
[2021-07-30] MEDS ORDERED: metroNIDAZOLE 500 MG TABLET PO ONE (01:30)
[2021-07-30] MEDS ORDERED: CLINDAMYCIN HCL 150 MG CAPSULE PO ONE (01:30)
[2021-07-30 01:43] VITALS: BP 147/84
== END 2021-07-30 01:43 | disposition home or self-care (01) ==
LOC: ER 22:28
DX: L03.032 Cellulitis of left toe (principal); L03.031 Cellulitis of right toe; I73.9 Peripheral vascular disease, unspecified; E11.42 Type 2 diabetes mellitus with diabetic polyneuropathy; F41.9 Anxiety disorder, unspecified; M79.7 Fibromyalgia; E78.00 Pure hypercholesterolemia, unspecified; I10 Essential (primary) hypertension; F17.210 Nicotine dependence, cigarettes, uncomplicated; Z88.8 Allergy status to other drugs, medicaments and biological substances
CPT/HCPCS: 73660; 99284; Q0162